=== PATIENT | male | born 1955 | race Caucasian/White ===

== ENCOUNTER 2019-07-03 12:06 | Outpatient (CLI) | payer OTHER ==
--- NOTE | 2019-07-03 14:30 | RAD ---
LUMBAR SPINE SERIES 4 VIEWS: Date: 07/03/19 HISTORY: Back pain. FINDINGS: The vertebral bodies are normal in height. Bilateral pedicle screws have been placed at L2, L3, L4, a nd L5. Laminectomy changes from L2-L4 are noted. Markers of disc implants are within the confines of the disc levels. Marked disc narrowing is seen at the L1-2 level. I do not see any abnormal motion of the flexion or extension views. IMPRESSION: Postoperative changes of the spine. POS: TPC
== END 2019-07-03 12:07 | disposition home or self-care (01) ==
LOC: SCSRAD 12:06
PROVIDERS: ATTEND Neurological Surgery
DX: M54.5 Low back pain (principal); Z98.890 Other specified postprocedural states
CPT/HCPCS: 72110

== ENCOUNTER 2019-09-01 06:13 | Outpatient (CLI) | payer OTHER ==
[2019-09-01 13:16] LABS: Hemoglobin 16.1 g/dL (14.0-18.0); Mean Corpuscular HGB CONC 33.8 g/dL (32.0-36.0); Mean Corpuscular Hemoglobin 31.9 pg (27.0-31.0); Mean Corpuscular Volume 94.3 fL (78.0-98.0); Mean Platelet Volume 7.7 fL (7.4-10.4); Platelet Count 151 thou/uL (130-400); RBC Distribution Width 12.4 % (11.5-14.5); Red Blood Cell (RBC) Count 5.04 mill/uL (4.70-6.10); White Blood Cell (WBC) Count 6.6 thou/uL (4.8-10.8)
[2019-09-01 13:22] LABS: PTT 30.8 SEC (22.9-36.1); Prothrombin Time 13.3 SEC (12.0-14.7)
== END 2019-09-01 06:14 | disposition home or self-care (01) ==
LOC: LABBT 06:13
PROVIDERS: ATTEND Neurological Surgery
DX: Z01.812 Encounter for preprocedural laboratory examination (principal); M48.061 Spinal stenosis, lumbar region without neurogenic claudication; M51.16 Intervertebral disc disorders with radiculopathy, lumbar region
CPT/HCPCS: 85027; 85610; 85730

== ENCOUNTER 2019-09-01 11:30 | Inpatient (IN) | payer OTHER ==
[2019-09-01 12:14] VITALS: BMI 36.9
--- NOTE | 2019-09-01 16:59 | HP ---
REASON FOR ADMISSION: I am here for my back surgery. HISTORY OF PRESENT ILLNESS: Pedro Fischer is a pleasant 63-year-old gentleman who came to see us in our office in June with back and leg pain. He had previous spine surgery done in [place] in 2009 including decompression and fusion. Things got worse again 2 years later and even more significantly in the 8 months leading up to his appointment in our office. He can stand and walk for about 5 minutes without having to lean forward. Sitting down also relieves his leg pain. With enough standing, he gets pain, numbness, tingling, weakness, and then has to sit. He has no loss of bowel or bladder control. In the past, he has tried medications, physical therapy, injections, and none of this was alleviating his symptoms. PAST MEDICAL HISTORY: Degenerative spine disease, cancer, chest pain, coronary artery disease, hypertension, cardiac dysrhythmia, shortness of breath, squamous cell carcinoma. PAST SURGICAL HISTORY: Laminectomy and fusion in 2009 in [place]. He had surgery on lesion in the neck in 2014. He has had cardiac ablation. MEDICATIONS: 1. Metoprolol. 2. Lisinopril. 3. Niacin. 4. Jardiance. 5. Aspirin. 6. Meloxicam. 7. Pantoprazole. 8. Pravastatin. 9. Uloric. 10. Hydrocodone/acetaminophen. 11. Zofran. 12. Fiber supplement. 13. Metformin. 14. Fish oil. 15. Flecainide. 16. Amiloride. ALLERGIES: TO LATEX. FAMILY HISTORY: Significant for coronary artery disease in his father who has . His mother had diabetes and she is no longer alive. SOCIAL HISTORY: Mr. Fischer is a former smoker. When he had his cardiac issues, he quit. He drinks alcoholic beverages from [id number] and does not use illicit drugs. PHYSICAL EXAMINATION: NEUROLOGIC: Mr. Fischer is awake during his evaluation. He is alert. His cognitive function is normal. There is no evidence of speech difficulty with either dysarthria or dysphasia. His cranial nerves are intact. Motor examination of the lower extremities reveal preserved motor function when seated in the iliopsoas, quadriceps, hamstrings, anterior tib, EHL, and gastrocnemius. There is no area of dermatomal sensory loss on his sensory examination. The reflexes are hypoactive, but symmetric. The toes are downgoing. There is no clonus. On gait evaluation, it is difficult to perform tandem gait and the longer he stands, the more he leans forward when walking. Lower extremity examination shows positive straight leg raise on the left. ADMISSION FINDINGS AND TEST RESULTS: MR imaging suggests of instrumented fusion from L2 through L5 with stenosis at T12-L1 and L1-L2 as well as an intervertebral disk protrusion causing lateral recess disease at L5-S1. Flexion-extension views do not show overt instability. ASSESSMENT AND PLAN: Adjacent segment stenosis above and below prior fusions, intractable neurogenic claudication. In the office, Mr. Fischer expressed interest in surgical intervention. Informed consent: In the office, we discussed indications, risks, benefits, alternatives, and expected outcomes from lumbar laminectomy. The risks we discussed included, but were not limited to, bleeding, infection, CSF leak, nerve damage, paralysis, incontinence, wheelchair dependence, major blood vessel injury, cardiopulmonary complications of anesthesia, and . Future risks include need to repeat surgery, failure of instrumentation. He understands all these risks and wants to proceed. We will take him to the operating room. Job ID: [id number]
[2019-09-04] MEDS ORDERED: Bupivacaine PF 0.5% 30 ML VIAL ONE (06:12)
[2019-09-04] MEDS ORDERED: Thrombin 5000 UNITS/5 ML VIAL ONE (06:12)
[2019-09-04] MEDS ORDERED: Fentanyl 100 MCG/2 ML VIAL ONE ×3 (06:29→12:45)
[2019-09-04] MEDS ORDERED: HYDROmorphone 2 MG/ML VIAL ONE (13:39)
[2019-09-04] MEDS ORDERED: Promethazine HCl 25 MG/ML VIAL IM PRN ×2 (13:59→14:22)
[2019-09-04] MEDS ORDERED: Promethazine HCl 25 MG/ML VIAL SLOW IVP PRN (13:59)
[2019-09-04] MEDS ORDERED: Morphine Sulfate 2 MG/ML SYRINGE SLOW IVP PRN (13:59)
[2019-09-04] MEDS ORDERED: PACU-Morphine 4MG/ML VIAL SLOW IVP PRN (13:59)
[2019-09-04] MEDS ORDERED: Ondansetron HCl/PF 4 MG/2 ML Vial IVP PRN (13:59)
[2019-09-04] MEDS ORDERED: HYDROmorphone 2 MG/ML VIAL SLOW IVP PRN (13:59)
[2019-09-04] MEDS ORDERED: Mag-Al 1200 mg/1200 mg/30 ML UDCUP PO PRN (14:22)
[2019-09-04] MEDS ORDERED: Acetaminophen 650 MG Suppository PR PRN (14:22)
[2019-09-04] MEDS ORDERED: Milk Of Magnesia 30 ML UDCUP PO PRN (14:22)
[2019-09-04] MEDS ORDERED: Acetaminophen 325 MG TAB PO PRN (14:22)
[2019-09-04] MEDS ORDERED: diphenhydrAMINE 25 MG CAP PO PRN (14:22)
[2019-09-04] MEDS ORDERED: Acetaminophen/Codeine 30-300mg Tablet PO PRN (14:22)
[2019-09-04] MEDS ORDERED: Ondansetron PF 4 MG/2 ML Vial IVP PRN (14:22)
[2019-09-04] MEDS ORDERED: diphenhydrAMINE 50 MG/ML VIAL IVP PRN (14:22)
[2019-09-04] MEDS ORDERED: Bisacodyl 10 MG SUPP PR PRN (14:22)
[2019-09-04] MEDS ORDERED: Promethazine 25 MG TAB PO PRN (14:22)
[2019-09-04] MEDS ORDERED: Morphine 2 MG/ML SYRINGE SLOW IVP PRN (14:22)
[2019-09-04] MEDS ORDERED: HYDROcodone/Acetaminophen 7.5/325 mg Tablet PO PRN (14:22)
[2019-09-04] MEDS ORDERED: Fleet Enema 133 ML BOT PR PRN (14:22)
[2019-09-04] MEDS ORDERED: Promethazine HCl 12.5 MG SUPP PR PRN (14:22)
[2019-09-04] MEDS ORDERED: Dexamethasone 20 MG/5 ML VIAL ONE (14:29)
[2019-09-04] MEDS ORDERED: PHENYLEPHRINE-NS 100 MCG/ML 10 ML SYRINGE ONE (14:29)
[2019-09-04] MEDS ORDERED: Ketorolac Tromethamine 30 MG/ML VIAL ONE (14:29)
[2019-09-04] MEDS ORDERED: ePHEDrine/0.9% NaCl/PF SYRINGE 50 mg/10 ml ONE (14:29)
[2019-09-04] MEDS ORDERED: Ondansetron PF 4 MG/2 ML Vial ONE (14:29)
[2019-09-04] MEDS ORDERED: Vecuronium 10 MG VIAL ONE (14:29)
[2019-09-04] MEDS ORDERED: Lidocaine 1% PF 5 ML VIAL ONE (14:29)
[2019-09-04] MEDS ORDERED: Rocuronium Bromide 10 MG/ML (10ML VIAL) ONE (14:29)
[2019-09-04] MEDS ORDERED: PROPOFOL 200 MG/20 ML VIAL ONE (14:29)
[2019-09-04] MEDS ORDERED: Metoclopramide HCl 10 MG/2 ML VIAL ONE (14:29)
[2019-09-04] MEDS ORDERED: Glycopyrrolate 0.2 MG/ML 5 ML SYRINGE ONE (14:29)
--- NOTE | 2019-09-04 17:45 | OP ---
DATE OF PROCEDURE: 09/04/2019 WORKERS' COMPENSATION COMMISSIONER: None. PREOPERATIVE INDICATION: Treat pain and prevent neurological deterioration. PREOPERATIVE DIAGNOSES: 1. Adjacent segment stenosis above and below prior fusion with neurogenic claudication at T12-L1, L1-L2, and L5-S1. 2. Intervertebral disk herniation, L5-S1. POSTOPERATIVE DIAGNOSES: 1. Adjacent segment stenosis above and below prior fusion with neurogenic claudication at T12-L1, L1-L2, and L5-S1. 2. Intervertebral disk herniation, L5-S1. OPERATIVE PROCEDURES: 1. Reopening lumbar incision. 2. Decompressive laminectomy, medial facetectomy, foraminotomy, T12-L1, L1-L2, and L5-S1. 3. Microdiskectomy, L5-S1. 4. Operating microscope. 5. Repair of dural ulceration. PREOPERATIVE MEDICATIONS: Ancef 2 g IV. DRAIN NUMBER: Zero. DRAIN TYPE: None. DESCRIPTION OF PROCEDURE: The patient was brought to the operating room. General endotracheal anesthesia was induced. The patient was carefully positioned on the operating table with his chest and hips supported by gel-filled chest rolls. A lateral fluoro radiograph confirmed that the superior and inferior ends of the previous incision would give us access from T12 through L2 as well as L5-S1. Hair was removed with electric clippers. The lumbar skin was sterilely prepped and draped. We opened the inferior portion of his previous incision with a 10 blade knife and controlled bleeding with bipolar and monopolar cautery. We used monopolar cautery to dissect through scar tissue to the thoracodorsal fascia. The fascia was incised in the midline and we reflected the paraspinal muscles off the spinous process and lamina of L5 and the superior portion of the sacrum. A lateral fluoro radiograph confirmed the levels upon which we were operating. We then used an angled curette to identify the inferior margin of the L5 lamina. Adson rongeurs were used to remove the spinous processes. We carefully released scar tissue from the inferior portion of the L5 lamina and we performed laminectomy carefully in the midline. At the superior portion of the L5 lamina, we worked our way downwards from inferiorly, we worked our way upwards. We found a portion of the lamina that was densely adherent to the dura. We worked our way around that area laterally and we carefully peeled it off under the operating microscope. We did this under microscopic magnification and using microsurgical techniques. As we removed the lamina, there was no dura under it, approximately 7 mm wide and 14 mm long. There was scarred over arachnoid, bulging out with no brisk CSF leak, but some slow egress of CSF. This was not a durotomy from surgery, but rather an erosion from friction of the dura on the ventral surface of the L5 lamina. We brought a bovine pericardial patch into the field. We cut it to the fit the defect. Using a 6-0 Prolene suture and microsurgical techniques, we sewed in this dural patch. This was done with a combination of running and interrupted sutures. Valsalva was administered to the patient after we completed our stitching. There was no brisk CSF egress. I then turned our attention to the decompression. We performed medial facetectomies and foraminotomies to ensure the L5 nerve roots and the S1 nerve roots could pass through their respective lateral recesses and out their foramina without impingement. With the decompression was secured, we looked ventrally for intervertebral disk herniation. We found this over the shoulder of the S1 nerve root on the left side. Multiple large fragments of disk material were removed from the ventral epidural space. Hemostasis was obtained with gentle bipolar cautery. We waxed the bone edges here and now we turned our attention to T12 through L2. We kept on operating under the operative microscope. We made our skin incision in line with the previous incision and extended superiorly. We incised down to the thoracodorsal fascia, incised this in the midline and reflected the paraspinal muscles off the spinous process and lamina of T12, L1, and L2. A lateral fluoro radiograph confirmed these levels. We used an Adson rongeur to remove the spinous process of T12 and L1. There was a remnant of the superior lamina of L2 noticed as well. Using a high-speed drill and a isabel bit, we thinned the lamina of T12 and L1 and the superior portion of L2. Using Kerrison rongeurs, we fashioned a laminectomy. We widened our laminectomy defect by performing medial facetectomies and foraminotomies. There was extreme compression at L1-L2 and this required very careful dissection of the dura from the ventral surface of the facet joints. We were able to free the dura. We performed medial facetectomies and decompressed the L2 nerve roots in the lateral recesses and foraminotomies over the roots at their exit points. In similar fashion, we performed medial facetectomy and foraminotomy at T12-L1, decompressing the L1 nerve roots in their foramina as well. The T12 nerve roots left the spine without any impingement. We waxed the bone edges here. We irrigated both incisions with bacitracin irrigation. We treated both incisions with vancomycin powder. We infused local anesthetic in the paraspinal muscles. We reinforced our dural closure with DuraSeal tissue sealant inferiorly. We closed both wounds in anatomical layers. We applied a sterile dressing. This was a clean case, no contamination. Job ID: [id number]
[2019-09-04] MEDS: Scopolamine 1.5 mg/72 hour Patch TD SCH (18:33)
[2019-09-04] MEDS: CEFAZOLIN 2 GM in Premix Bag 1 BAG IVPB SCH ×2 (18:41→23:09)
[2019-09-04] MEDS ORDERED: Dextrose 50% Abboject 50 ML SYRINGE SLOW IVP PRN (20:28)
[2019-09-04] MEDS ORDERED: Dextrose 5% in Water 1,000 ML IV PRN (20:28)
[2019-09-04] MEDS ORDERED: HumaLOG 300 UNITS/3 ML VIAL SC PRN (20:28)
--- NOTE | 2019-09-04 21:30 | CON ---
DATE OF CONSULTATION: 09/04/2019 TIME OF ASSESSMENT: 1900 hours. REASON FOR CONSULTATION: Medical management. HISTORY OF PRESENT ILLNESS: Mr. Fischer is a 63-year-old gentleman, who has undergone a decompressive laminectomy of T12-L1, L1-L2, and L5-S1. This was done by Dr. Byrd today. He apparently has had prior spine surgery in [place] in 2009 consisting of decompression and fusion. The patient has had gradual worsening of back pain since then. At this present time, he states his pain is controlled and he reports having issues with sleep apnea. The patient is requesting a CPAP, but states he does not know his settings. Reports underwent a sleep study 6 years ago and states his machine broke approximately 2 years ago. He has tried seeing his primary care physician with unsuccessful attempt at getting a sleep study arranged. He is requesting to have the sleep study done while he is here. The patient is otherwise without any concerns or complaints. He denies any chest pain or shortness of breath at this present time. He has mild discomfort to the right side of the ribcage and states he was lying on that side during the surgery, which turned out to be longer than expected. He states it is only slightly tender to touch. REVIEW OF SYSTEMS: All other review of systems is negative. PAST MEDICAL HISTORY: 1. Degenerative spine disease. 2. History of basal cell carcinoma. 3. History of squamous cell carcinoma. 4. Coronary artery disease. 5. Hypertension. 6. History of cardiac arrhythmia. 7. Obstructive sleep apnea. PAST SURGICAL HISTORY: 1. Laminectomy and fusion in 2009. 2. Lesion removed from neck in 2014. 3. History of cardiac ablation. 4. Spine surgery today as mentioned above. SOCIAL HISTORY: The patient states he lives with his . Denies any tobacco use since age 16. Reports occasional alcohol consumption. No illicit drug use. FAMILY HISTORY: Significant for coronary artery disease in his father who is . His mother who also is , had a history of diabetes. ALLERGIES: TO LATEX. CURRENT MEDICATIONS: 1. Amiloride/hydrochlorothiazide. 2. Aspirin. 3. Empagliflozin. 4. Uloric. 5. Furosemide. 6. Hydrocodone/acetaminophen. 7. Vascepa. 8. Lisinopril. 9. Meloxicam. 10. Metformin ER. 11. Toprol-XL. 12. Niacin. 13. Pantoprazole. 14. Potassium chloride. PHYSICAL EXAMINATION: GENERAL: The patient appears well developed, well nourished, is in no acute distress. VITAL SIGNS: Temperature 97.6; pulse 66; respirations 16; O2 saturation 88% on room air, maintaining 90% on 2 L by nasal cannula; blood pressure 139/81. HEENT: Normocephalic and atraumatic. Pupils are equal, round, and reactive to light. Sclerae icterus. Oropharynx is clear. NECK: Supple. LUNGS: Clear to auscultation bilaterally without any wheezes, rales, or rhonchi. CARDIAC: Regular rate and rhythm. ABDOMEN: Soft, nontender, nondistended. Normoactive bowel sounds present. Mild discomfort to the right lower lateral rib cage with palpation. No guarding, minimally uncomfortable per the patient. EXTREMITIES: No lower leg swelling or edema. NEUROLOGIC: Alert and oriented x3. SKIN: Warm and dry. LABORATORY DATA: Obtained on September 01, 2019, white blood count 6.6, hemoglobin 16.1, hematocrit 47.5, platelets 151. IMAGING DATA: None. IMPRESSION AND PLAN: Mr. Fischer is a 63-year-old gentleman, status post laminectomy, who has been referred for medical management of the following. 1. Hypertension. Resume home medications. Monitor blood pressure. 2. Diabetes mellitus. We will change his diet to heart healthy/consistent carb diet. We will monitor blood glucose and insulin sliding scale has been ordered. 3. Obstructive sleep apnea. The patient is requesting a CPAP, however, does not know his settings. We will attempt to obtain an autoPAP. The patient is also requesting a sleep study, so he can obtain new machine while he is here hospitalized. However, I explained that this need to be arranged as an outpatient through his primary care physician. Continuous O2 saturation monitoring. 4. Gastrointestinal prophylaxis. The patient is on pantoprazole at home, which we will continue. 5. Hyperlipidemia. Resume home medications. 6. The patient with known arrhythmia. He is on flecainide at home, which we will resume. We will obtain a baseline EKG. Echocardiogram on file was done on August 10, 2019, by Dr. Barakat. He was noted to have a normal ejection fraction of 60 % to 65% with RV mildly dilated, as well as left atrium mildly dilated, mild aortic valve sclerosis without significant stenosis, mild tricuspid regurgitation. 7. Deep venous thrombosis prophylaxis with mechanical SCDs. 8. Code status, full. Surrogate decision maker is his , Arti Fischer. Thank you for this consultation. We will continue to follow the patient with you. Case was discussed with attending who agrees with plan of care as described above. Job ID: [id number] MTDJoel
[2019-09-04] MEDS: metFORMIN 500 MG TAB PO SCH (22:01)
[2019-09-04] MEDS: Simvastatin 20 MG TAB PO SCH (22:02)
[2019-09-04] MEDS: Niacin 500 MG TAB PO SCH (22:02)
[2019-09-04] MEDS: Febuxostat 40 MG TAB PO SCH (22:02)
[2019-09-04] MEDS: Famotidine/PF 20 mg/2ml Vial SLOW IVP SCH (22:05)
[2019-09-05 05:18] LABS: #Lymphocytes 1.5 thou/uL (1.20-3.40); #Monocytes 1.1 thou/uL (0.11-0.59); #Neutrophils 9.5 thou/uL (1.40-6.50); %Basophils 0.1 % (0.0-1.0); %Eosinophils 0.1 % (0.0-10.0); %Lymphocytes 12.5 % (21.0-51.0); %Neutrophils 78.3 % (42.0-75.0); Mean Corpuscular HGB CONC 33.2 g/dL (32.0-36.0); Mean Corpuscular Hemoglobin 32.2 pg (27.0-31.0); Mean Corpuscular Volume 97.1 fL (78.0-98.0); Mean Platelet Volume 7.2 fL (7.4-10.4); Platelet Count 137 thou/uL (130-400); RBC Distribution Width 12.5 % (11.5-14.5); Red Blood Cell (RBC) Count 4.34 mill/uL (4.70-6.10); White Blood Cell (WBC) Count 12.1 thou/uL (4.8-10.8)
[2019-09-05] MEDS: Acetaminophen/Codeine 30-300mg Tablet PO PRN (05:24)
[2019-09-05] MEDS: Tamsulosin HCl 0.4 MG CAP PO SCH (05:25)
[2019-09-05] MEDS: tiZANidine HCl 4 MG TAB PO PRN ×3 (05:25→23:52)
[2019-09-05] MEDS: HumaLOG 300 UNITS/3 ML VIAL SC PRN ×2 (05:26→18:07)
[2019-09-05 05:34] LABS: Anion Gap 12 mmol/L (10-20); BUN (Urea Nitrogen) 15 mg/dL (8.4-25.7); Calc. Creatinine Clearance 172 mL/min (70-130); Calcium 8.3 mg/dL (7.8-10.44); Carbon Dioxide 27 mmol/L (23-31); Chloride 100 mmol/L (98-107); Estimated GFR-MDRD Greater than 90; Glucose 155 mg/dL (80-115); Potassium 4.2 mmol/L (3.5-5.1); Sodium 135 mmol/L (136-145)
[2019-09-05] MEDS: Sodium Chloride 0.9% 1,000 ML IV SCH ×4 (06:23→23:53)
--- NOTE | 2019-09-05 07:00 | PRG ---
DATE OF SERVICE: 09/05/2019 Mr. Fischer is one day out from decompressive laminectomy above and below previous long segment fusion. He had significant amount of stenosis seen in the operating room and a part of the L5 lamina that had eroded through the dura. The dura was repaired and for this reason, we kept him flat overnight. His back hurts and there is some pain over the greater trochanteric bursa on the right side. Among the electronically recorded vital signs, I do not see any fevers. The other vitals have all been stable. The neurological function in lower extremities is normal. The plan today is to get Mr. Fischer up and moving. We will slowly raise the head of bed over the next hour or so. The first time he is out of bed, he will need assistance of 2 people. Once his balance is assessed, then thereafter he may be stable enough to go with one person assisting with ambulation. He should walk as frequently as possible. Physical therapy can start. Because of the bursitis that he notes this morning, I have instructed him to stretch his iliotibial band by flexing the knee and then pulling it towards the contralateral shoulder. The stretches could be done while he is in bed at any time. Once he is safe for activities of daily living, he can be discharged, but that is unlikely to happen today. Job ID: [id number] MTDD
[2019-09-05] MEDS ORDERED: Hydrochlorothiazide 25 MG TAB PO SCH (09:00)
[2019-09-05] MEDS ORDERED: (Empagliflozin [Jardiance] 10 MG) PO SCH (09:00)
[2019-09-05] MEDS ORDERED: Furosemide 20 MG TAB PO SCH (09:00)
[2019-09-05] MEDS ORDERED: AMILORIDE PO SCH (09:00)
[2019-09-05] MEDS ORDERED: [UNRECOGNIZED DRUG - OTHER] PO SCH (09:00)
[2019-09-05] MEDS ORDERED: HYDROCHLOROTHIAZIDE PO SCH (09:00)
[2019-09-05] MEDS ORDERED: Lisinopril 20 MG TAB PO SCH (09:00)
[2019-09-05] MEDS: HYDROcodone/Acetaminophen 7.5/325 mg Tablet PO PRN ×3 (09:40→18:04)
[2019-09-05] MEDS: Aspirin Chewable 81 MG TAB PO SCH (09:41)
[2019-09-05] MEDS: metFORMIN 500 MG TAB PO SCH ×2 (09:42→20:16)
[2019-09-05] MEDS: Famotidine/PF 20 mg/2ml Vial SLOW IVP SCH (09:42)
[2019-09-05] MEDS ORDERED: Labetalol HCl 100 MG/20 ML VIAL SLOW IVP PRN (13:14)
[2019-09-05] MEDS: Lisinopril 10 MG TAB PO SCH (20:15)
[2019-09-05] MEDS: Febuxostat 40 MG TAB PO SCH (20:15)
[2019-09-05] MEDS: Simvastatin 20 MG TAB PO SCH (20:16)
[2019-09-05] MEDS: Niacin 500 MG TAB PO SCH (20:16)
--- NOTE | 2019-09-05 20:17 | PDOC.HOSPP ---
- Subjective Encounter Date: 09/05/19 Encounter Time: 18:45 Subjective: Patient seen and examined for med mngt. No new complaints. No overnight events - Objective Vital Signs & Weight: Vital Signs (12 hours) Temp Pulse Pulse Resp BP BP BP 09/05/19 16:12 98.0 F 80 20 107/70 09/05/19 14:50 112/64 09/05/19 13:42 71 108/70 09/05/19 10:14 97.9 F 72 20 88/52 L 09/05/19 09:00 71 114/69 95/61 Pulse Ox Pulse Ox 09/05/19 16:12 93 L 09/05/19 14:50 09/05/19 13:42 09/05/19 10:14 95 09/05/19 09:00 95 Weight Weight 280 lb I&O: 09/04/19 09/05/19 09/06/19 06:59 06:59 06:59 Intake Total 2562.5 Output Total 900 Balance -900 2562.5 Result Diagrams: 09/05/19 05:03 09/05/19 05:03 Additional Labs: Accuchecks 09/05/19 09/05/19 09/05/19 16:13 10:23 05:27 POC Glucose 199 H 161 H 150 H 09/04/19 22:04 POC Glucose 201 H Hospitalist ROS - Review of Systems Respiratory: denies: cough, dry, shortness of breath, hemoptysis, SOB with excertion, pleuritic pain, sputum, wheezing, other Cardiovascular: denies: chest pain, palpitations, orthopnea, paroxysmal noc. dyspnea, edema, light headedness, other - Medication Medications: Active Medications Generic Name Dose Route Start Last Admin Trade Name Freq PRN Reason Stop Dose Admin Acetaminophen/Codeine Phosphate 2 tab 09/04/19 14:22 09/05/19 05:24 Tylenol #3 PO 2 tab Q3H PRN Administration Moderate Pain (4-6) Hydrocodone Bitart/Acetaminophen 2 tab 09/04/19 14:22 09/05/19 18:04 [place] 7.5/325 PO 2 tab Q4H PRN Administration Moderate Pain (4-6) Aspirin 81 mg 09/05/19 09:00 09/05/19 09:41 Aspirin Chewable PO 81 mg DAILY JESS Administration Febuxostat 80 mg 09/04/19 21:00 09/04/19 22:02 Uloric PO 80 mg QPM JESS Administration Sodium Chloride 1,000 mls @ 75 mls/hr 09/04/19 14:30 09/05/19 11:30 Normal Saline 0.9% IV 1,000 mls .[id number] JESS Administration Insulin Human Lispro 0 units 09/04/19 20:28 09/05/19 18:07 Humalog SC 2 unit .MILD SLIDING SCALE PRN Administration Mild Correctional Scale Insulin Human Lispro 0 units 09/04/19 20:28 09/04/19 22:05 Humalog SC 2 unit .BEDTIME SLIDING SC PRN Administration Bedtime Correctional Scale Metformin HCl 750 mg 09/04/19 21:00 09/05/19 09:42 Glucophage PO 750 mg BID JESS Administration Morphine Sulfate 2 mg 09/04/19 14:22 09/05/19 13:43 Morphine SLOW IVP 2 mg Q1H PRN Administration Moderate Breakthrough Pain Niacin 500 mg 09/04/19 21:00 09/04/19 22:02 Niacin PO 500 mg HS JESS Administration Pantoprazole Sodium 40 mg 09/04/19 21:00 09/04/19 22:02 Protonix PO 40 mg QPM JESS Administration Potassium Chloride 20 meq 09/04/19 21:00 09/04/19 22:01 Klor-Con PO 20 meq QPM JESS Administration Scopolamine 1.5 mg 09/04/19 15:00 09/04/19 18:33 Transderm Scop TD 1.5 mg Q3D EJSS Administration Simvastatin 20 mg 09/04/19 21:00 09/04/19 22:02 Zocor PO 20 mg QPM JESS Administration Tamsulosin HCl 0.4 mg 09/05/19 06:00 09/05/19 05:25 Flomax PO 0.4 mg 0600 JESS Administration Tizanidine HCl 4 mg 09/04/19 14:22 09/05/19 16:32 Zanaflex PO 4 mg Q6H PRN Administration Muscle Spasm - Exam Heart: RRR, no gallops Respiratory: no wheezes, no rales, no ronchi Gastrointestinal: soft, non-tender, normal bowel sounds Extremities: no cyanosis Hosp A/P - Plan DVT proph w/SCDs HTN - BP on lower side CAREN Obesity BMI 36.9 CAD DM2 Hyponatremia PLAN: Reduce Lisinopril to 10 mg BID with holding parameters Reduce Toprol XL to 25 mg BID with holding parameters Hold Lasix/HCTZ Cont Metformin with sliding scale CPAP HS Cont PT/OT
[2019-09-06] MEDS: Tamsulosin HCl 0.4 MG CAP PO SCH (05:27)
--- NOTE | 2019-09-06 07:49 | PRG ---
DATE OF SERVICE: 09/06/2019 Mr. Fischer is 2 days out from lumbar laminectomy above and below the areas of previous decompression and fusion performed elsewhere. He has been slow to mobilize. He needs assistance of 2. When he walks on his own, it has been for about 50 feet before his legs get tired enough he has to sit again. He does not complain of headache. He does not complain of radicular pain. He does complain of some muscle spasm and the aforementioned weakness. I reviewed his vital signs, I do not see any fevers recorded. His blood pressures have been in the 90s to 110s. EXTREMITIES: When he is resting in bed, he has good motor function and sensory function in the lower extremities. The incision is well-approximated with minimal drainage on the dressing that I removed. I think Mr. Fischer would be a good candidate for inpatient rehabilitation. We will get them to come by today and decide whether tomorrow he could transfer to their facility. He just has not been walking far enough and he is not independent enough yet to leave the hospital and a transition to home through rehab, I think would be worthwhile. The patient could shower today, does not need a dressing unless there is drainage. Job ID: [id number] MTDD
[2019-09-06] MEDS: Aspirin Chewable 81 MG TAB PO SCH (08:39)
[2019-09-06] MEDS: HYDROcodone/Acetaminophen 7.5/325 mg Tablet PO PRN ×4 (08:39→20:54)
[2019-09-06] MEDS: metFORMIN 500 MG TAB PO SCH ×2 (08:39→20:56)
[2019-09-06] MEDS: tiZANidine HCl 4 MG TAB PO PRN ×2 (08:39→17:47)
[2019-09-06] MEDS: Lisinopril 10 MG TAB PO SCH ×2 (08:43→20:57)
--- NOTE | 2019-09-06 10:50 | PDOC.FM ---
- Subjective Subjective: NAEO. Patient reports feeling ok this AM. Does have persistent back pain but is moving around ok. Reports a "productive feeling" cough but denies any SOB or fever/chills. No dizziness or orthostasis with ambulation. - Objective MAR Reviewed: Yes Vital Signs & Weight: Vital Signs (12 hours) Temp Pulse Resp BP BP Pulse Ox 09/06/19 08:43 94/63 09/06/19 08:09 98.3 F 77 20 94/63 96 09/06/19 07:39 97.5 F L 67 18 92/61 94 L 09/06/19 03:40 98.2 F 72 18 99/63 92 L 09/05/19 23:38 97.7 F 75 18 100/65 97 Weight Weight 127.006 kg I&O: 09/05/19 09/06/19 09/07/19 06:59 06:59 06:59 Intake Total 2562.5 Output Total 900 Balance -900 2562.5 Result Diagrams: 09/05/19 05:03 09/06/19 13:04 Phys Exam - Physical Examination Constitutional: NAD HEENT: moist MMs Neck: supple Respiratory: no wheezing, no rales end expiratory rhonchi in lower lung pelayo & distant breath sounds thorughout 2/2 body habitus Cardiovascular: RRR, no significant murmur Neurological: non-focal, moves all 4 limbs Psychiatric: normal affect, A&O x 3 Skin: normal turgor Deviation from normal: mild edema with erythema & honey-colored crusting noted on chin -: back incision site clean, dry & intact Dx/Plan (1) HTN (hypertension) Code(s): I10 - ESSENTIAL (PRIMARY) HYPERTENSION Status: Acute (2) CAREN (obstructive sleep apnea) Code(s): G47.33 - OBSTRUCTIVE SLEEP APNEA (ADULT) (PEDIATRIC) Status: Acute (3) Obesity Code(s): E66.9 - OBESITY, UNSPECIFIED Status: Acute (4) CAD (coronary artery disease) Code(s): I25.10 - ATHSCL HEART DISEASE OF [place] CORONARY ARTERY W/O ANG PCTRS Status: Acute (5) Post-operative pain Code(s): G89.18 - OTHER ACUTE POSTPROCEDURAL PAIN Status: Acute (6) Impetigo Code(s): L01.00 - IMPETIGO, UNSPECIFIED Status: Acute - Plan Plan: 36YOM w/ a PMH significant for HTN, CAREN on APAP, DMII & HLD who is post-op day # 2 s/p laminectomy for which we were consulted for medical management. Hypotension - BP still running in the 90s systolic this AM but patient reports being asymptomatic. - Held AM BP meds. Will continue to hold & restart as tolerated by the patient. HTN - See plan above. CAREN - Continue APAP use in hospital. Obesity BMI 36.9 - Aware, will encourage weight loss. CAD - Continue home meds NIDDM2 - Aware, continue home meds. - mild SSI to keep BG levels below 180 while inpatient. hypoglycemia protocol. ACHS accuchecks. Hyponatremia - Na 135 yesterday, likely 2/2 decreased PO intake. Will get a repeat BMP today since patient now tolerating PO. Impetigo - Impetiginous rash noted on chin. - Will start topical and oral abx therapy to be continued for 5 & 7 days respectively. post-op pain - Managed by primary team post-op day #2 s/p laminectomy - Managed by primary team. Reports PT & OT are on board & pending rehab placement for continued therapy post-op. Dispo: Stable & in good condition. Will gradually resume home BP meds as tolerated by patient. D/c per primary team likely tomorrow to rehab for continued therapy. Addendum - Attending - Attending Attestation Date/Time: 09/07/19 0750 I personally evaluated the patient and discussed the management with Dr. Whyte yesterday morning. I agree with the History, Examination, Assessment and Plan documented above with any addition or exceptions noted below.
[2019-09-06 13:38] LABS: Anion Gap 9 mmol/L (10-20); BUN (Urea Nitrogen) 13 mg/dL (8.4-25.7); Calc. Creatinine Clearance 186 mL/min (70-130); Calcium 7.8 mg/dL (7.8-10.44); Carbon Dioxide 27 mmol/L (23-31); Chloride 101 mmol/L (98-107); Estimated GFR-MDRD Greater than 90; Glucose 137 mg/dL (80-115); Potassium 4.2 mmol/L (3.5-5.1); Sodium 133 mmol/L (136-145)
[2019-09-06] MEDS: HumaLOG 300 UNITS/3 ML VIAL SC PRN (17:47)
[2019-09-06] MEDS: Simvastatin 20 MG TAB PO SCH (20:55)
[2019-09-06] MEDS: Niacin 500 MG TAB PO SCH (20:55)
[2019-09-06] MEDS: Doxycycline 100 MG CAP PO SCH (20:56)
[2019-09-06] MEDS: Febuxostat 40 MG TAB PO SCH (20:57)
[2019-09-06] MEDS: Mupirocin 2% Ointment 22 GM Tube TOP SCH (20:58)
[2019-09-07] MEDS: HYDROcodone/Acetaminophen 7.5/325 mg Tablet PO PRN ×5 (03:32→21:10)
[2019-09-07] MEDS: Tamsulosin HCl 0.4 MG CAP PO SCH (05:05)
--- NOTE | 2019-09-07 08:31 | PRG ---
DATE OF SERVICE: 09/07/2019 Mr. Fischer is 3 days out from a redo lumbar laminectomy above and below areas of previous lumbar fusion. He also had diskectomy at the lumbosacral interspace. Mr. Fischer said his preoperative pain has gone, but he has a significant muscle spasm in the back, in the gluteal area, some times it affects his upper thigh. He feels general weakness and his legs get tired if he is walking with Physical Therapy in the hallways. Yesterday, showering caused significant muscle spasm and set him back a bit. He is hoping for a better day today. I reviewed his vital signs. I do not see any fevers recorded overnight and his blood pressures have been in the 90s to 120s. On examination, there is at least 4+ out of 5 strength in all muscle groups tested in the lower extremities. There is no area of dermatomal sensory loss. Mr. Fischer has had 3 days of increasing muscle spasm and back pain after surgery. I believe the pain will plateau today and will get a bit ahead of it with adding gabapentin. I think he is a good candidate for inpatient rehabilitation and a transfer there could be made at any time. If symptoms progressively worsen over time rather than improving, we could get imaging, but I do not believe that will be the case. Job ID: [id number] MTDD
[2019-09-07] MEDS: metFORMIN 500 MG TAB PO SCH ×2 (08:44→21:10)
[2019-09-07] MEDS: Aspirin Chewable 81 MG TAB PO SCH (08:44)
[2019-09-07] MEDS: Doxycycline 100 MG CAP PO SCH ×2 (08:44→21:09)
[2019-09-07] MEDS: tiZANidine HCl 4 MG TAB PO PRN ×2 (08:44→14:48)
[2019-09-07] MEDS: Lisinopril 10 MG TAB PO SCH ×2 (08:45→21:12)
[2019-09-07] MEDS: Gabapentin 300 MG CAP PO SCH ×3 (08:45→21:09)
[2019-09-07] MEDS: Mupirocin 2% Ointment 22 GM Tube TOP SCH ×2 (08:45→21:11)
[2019-09-07] MEDS: Morphine 4 MG/ML VIAL SLOW IVP PRN ×2 (09:08→22:08)
--- NOTE | 2019-09-07 09:27 | PDOC.FM ---
- Subjective Subjective: Patient reports feeling ok this AM. Still having quite a bit of pain. Also concerned he may be developing a UTI but denies any dysuria, frequency, cloudy urine or hematuria. Just states "towards the end it just doesn't feel right." Also endorses constipation and would like something for this. - Objective MAR Reviewed: Yes Vital Signs & Weight: Vital Signs (12 hours) Temp Pulse Resp BP BP Pulse Ox 09/07/19 08:45 151/96 H 09/07/19 07:59 98.1 F 77 18 151/96 H 90 L 09/07/19 03:10 98.2 F 71 16 134/84 94 L 09/06/19 23:20 97.7 F 67 16 113/76 97 Weight Weight 127.006 kg I&O: 09/06/19 09/07/19 09/08/19 06:59 06:59 06:59 Intake Total 2562.5 3590 Balance 2562.5 3590 Result Diagrams: 09/05/19 05:03 09/06/19 13:04 Phys Exam - Physical Examination Constitutional: NAD HEENT: moist MMs, sclera anicteric Neck: supple Respiratory: no wheezing, no rales, no rhonchi, clear to auscultation bilateral Cardiovascular: RRR, no significant murmur Gastrointestinal: soft, non-tender decreased bowel sounds Neurological: non-focal, moves all 4 limbs Psychiatric: normal affect, A&O x 3 Skin: normal turgor Deviation from normal: mild edema with erythema & honey-colored crusting noted on chin Dx/Plan (1) HTN (hypertension) Code(s): I10 - ESSENTIAL (PRIMARY) HYPERTENSION Status: Acute (2) CAREN (obstructive sleep apnea) Code(s): G47.33 - OBSTRUCTIVE SLEEP APNEA (ADULT) (PEDIATRIC) Status: Acute (3) Obesity Code(s): E66.9 - OBESITY, UNSPECIFIED Status: Acute (4) CAD (coronary artery disease) Code(s): I25.10 - ATHSCL HEART DISEASE OF [place] CORONARY ARTERY W/O ANG PCTRS Status: Acute (5) Post-operative pain Code(s): G89.18 - OTHER ACUTE POSTPROCEDURAL PAIN Status: Acute (6) Impetigo Code(s): L01.00 - IMPETIGO, UNSPECIFIED Status: Acute - Plan Plan: 36YOM w/ a PMH significant for HTN, CAREN on APAP, DMII & HLD who is post-op day # 3 s/p laminectomy for which we were consulted for medical management. Hypotension, resolved. - Will continue home meds as tolerated by the patient. HTN - Resume home meds today. CAREN - Continue APAP use in hospital. Obesity BMI 36.9 - Aware, will encourage weight loss. CAD - Continue home meds NIDDM2 - Aware, continue home meds. - mild SSI to keep BG levels below 180 while inpatient. hypoglycemia protocol. ACHS accuchecks. Hyponatremia - Na 133 yesterday. Will continue to monitor. Impetigo - Impetiginous rash noted on chin. - Will continue topical and oral abx therapy to be continued for 5 & 7 days respectively. post-op pain - Managed by primary team opioid induced constipation - Will start on JESS miralax & sennoside/docusate QD & BID respectively. post-op day #3 s/p laminectomy - Managed by primary team. Reports PT & OT are on board & pending rehab placement for continued therapy post-op. Dispo: Stable & in good condition. Will resume home BP meds as tolerated by patient. D/c per primary team likely today to rehab for continued therapy.
[2019-09-07] MEDS ORDERED: Polyethylene Glycol 3350 17 GM Packet PO SCH (09:30)
[2019-09-07] MEDS: Bisacodyl 10 MG SUPP PR SCH ×2 (10:23→21:13)
[2019-09-07] MEDS: Scopolamine 1.5 mg/72 hour Patch TD SCH (14:48)
[2019-09-07] MEDS: Acetaminophen/Codeine 30-300mg Tablet PO PRN (18:10)
[2019-09-07] MEDS: HumaLOG 300 UNITS/3 ML VIAL SC PRN (18:11)
[2019-09-07] MEDS ORDERED: Icosapent Ethyl 1 GM CAPSULE PO SCH (21:00)
[2019-09-07] MEDS: Niacin 500 MG TAB PO SCH (21:09)
[2019-09-07] MEDS: Simvastatin 20 MG TAB PO SCH (21:10)
[2019-09-07] MEDS: Febuxostat 40 MG TAB PO SCH (21:10)
[2019-09-08] MEDS: HYDROcodone/Acetaminophen 7.5/325 mg Tablet PO PRN (03:01)
[2019-09-08] MEDS: Morphine 4 MG/ML VIAL SLOW IVP PRN (04:01)
[2019-09-08] MEDS: Tamsulosin HCl 0.4 MG CAP PO SCH (05:19)
--- NOTE | 2019-09-08 06:11 | PDOC.FM ---
- Subjective Subjective: NAEO. Patient reports that he has yet to have a BM since his surgery. Denies any abdominal pain or N/V. Also denies any fever/chills, SOB, chest pain or cough. - Objective MAR Reviewed: Yes Vital Signs & Weight: Vital Signs (12 hours) Temp Pulse Resp BP BP BP Pulse Ox 09/08/19 03:42 98.9 F 76 18 163/93 H 94 L 09/07/19 23:30 97.6 F 70 19 130/86 92 L 09/07/19 21:12 115/76 09/07/19 20:00 98.5 F 68 18 115/76 93 L Weight Weight 127.006 kg I&O: 09/06/19 09/07/19 09/08/19 06:59 06:59 06:59 Intake Total 2562.5 3590 1959 Balance 2562.5 3590 1959 Result Diagrams: 09/05/19 05:03 09/08/19 06:26 Phys Exam - Physical Examination Constitutional: NAD HEENT: moist MMs Neck: supple Respiratory: no wheezing, no rales, no rhonchi, clear to auscultation bilateral Cardiovascular: RRR, no significant murmur Gastrointestinal: soft, non-tender, no distention, positive bowel sounds Neurological: non-focal, moves all 4 limbs Psychiatric: normal affect, A&O x 3 Skin: normal turgor, cap refill <2 seconds Dx/Plan (1) HTN (hypertension) Code(s): I10 - ESSENTIAL (PRIMARY) HYPERTENSION Status: Acute (2) CAREN (obstructive sleep apnea) Code(s): G47.33 - OBSTRUCTIVE SLEEP APNEA (ADULT) (PEDIATRIC) Status: Acute (3) Obesity Code(s): E66.9 - OBESITY, UNSPECIFIED Status: Acute (4) CAD (coronary artery disease) Code(s): I25.10 - ATHSCL HEART DISEASE OF [place] CORONARY ARTERY W/O ANG PCTRS Status: Acute (5) Post-operative pain Code(s): G89.18 - OTHER ACUTE POSTPROCEDURAL PAIN Status: Acute (6) Impetigo Code(s): L01.00 - IMPETIGO, UNSPECIFIED Status: Acute - Plan Plan: 36YOM w/ a PMH significant for HTN, CAREN on APAP, DMII & HLD who is post-op day # 4 s/p laminectomy for which we were consulted for medical management. Impetigo - Impetiginous rash noted on chin. - Will continue topical and oral abx therapy to be continued for 5 & 7 days respectively. Opioid induced constipation - Will continue JESS miralax & stool softener QD & BID respectively. Will consider an enema if patient is willing. Hyponatremia - NLast measured 2 days ago was 133. Will get a repeat BMP today to trend. post-op pain - Managed by primary team HTN - Continue home meds. CAREN - Continue APAP use in hospital. Obesity BMI 36.9 - Aware, will encourage weight loss. CAD - Continue home meds NIDDM2 - Aware, continue home meds. - mild SSI to keep BG levels below 180 while inpatient. Hypoglycemia protocol. ACHS accuchecks. post-op day #4 s/p laminectomy - Managed by primary team. Reports PT & OT are on board & pending rehab placement for continued therapy post-op. Hypotension, resolved. - Will continue home meds as tolerated by the patient. Dispo: Remains stable & in good condition. D/c per primary team either today to rehab or home for the weekend to start rehab therapy on Wednesday for continued therapy.
[2019-09-08] MEDS ORDERED: HYDROcodone/Acetaminophen 10/325 mg Tablet PO PRN (06:34)
[2019-09-08 06:57] LABS: Anion Gap 9 mmol/L (10-20); BUN (Urea Nitrogen) 7 mg/dL (8.4-25.7); Calc. Creatinine Clearance 226 mL/min (70-130); Carbon Dioxide 29 mmol/L (23-31); Chloride 100 mmol/L (98-107); Estimated GFR-MDRD Greater than 90; Glucose 111 mg/dL (80-115); Potassium 4.1 mmol/L (3.5-5.1); Sodium 134 mmol/L (136-145)
--- NOTE | 2019-09-08 07:24 | PRG ---
DATE OF SERVICE: 09/08/2019 Mr. Fischer is 4 days out from decompressive laminectomy above and below area of previous lumbar fusion. He had increasing symptoms peaking about 3 days after surgery and he feels like he plateaued and maybe turned a corner because his strength is improving and the pain is more manageable. He was able to walk 2 times in the hallway yesterday. He has walked farther than he has since his admission, but still not around the floor completely. He feels his legs are carrying him better. He is not as off-balanced as he has been with walking and the pain in his legs is improved. The pain at the surgical site, however, continues to bother him. He gets a few twinges of pain down the legs but after a couple minutes, they go away and he is able to walk. He was evaluated by Inpatient Rehabilitation to see if he is a candidate for a transfer and we are waiting on insurance approval. As I reviewed the vital signs, I do not see any fevers recorded. His blood pressures have been up for the last day, whereas they were in the 90s to 120s after surgery, they are now in the 130s to 160s. On physical exam, there is excellent strength in the iliopsoas and the quadriceps and the hamstrings and the anterior tib and the EHL and the gastroc and the toe flexors. There is no area of dermatomal sensory loss in the lower extremities. Incision is well-approximated. Mr. Fischer, in my view would be excellent candidate for inpatient rehabilitation. He needs to be more independent for activities of daily living before going home. He lives alone and does not have significant help in the house. He has had previous surgery and this recovery is in-line with what he has experienced before. He has made progress, but he is not walking as far as I would like him to before being discharged. If insurance approves the inpatient rehabilitation stay of a few days to a couple weeks maximum, then he can be transferred. I anticipate the total rehab length of stay will be 1 week or less. Job ID: [id number]
[2019-09-08] MEDS: Aspirin Chewable 81 MG TAB PO SCH (08:14)
[2019-09-08] MEDS: metFORMIN 500 MG TAB PO SCH ×2 (08:14→20:59)
[2019-09-08] MEDS: HYDROcodone/Acetaminophen 10/325 mg Tablet PO PRN ×4 (08:15→22:27)
[2019-09-08] MEDS: Lisinopril 10 MG TAB PO SCH ×2 (08:15→20:59)
[2019-09-08] MEDS: Gabapentin 300 MG CAP PO SCH ×3 (08:15→20:59)
[2019-09-08] MEDS: tiZANidine HCl 4 MG TAB PO PRN ×2 (08:50→15:45)
[2019-09-08] MEDS: Doxycycline 100 MG CAP PO SCH ×2 (08:50→21:00)
[2019-09-08] MEDS: Mupirocin 2% Ointment 22 GM Tube TOP SCH ×2 (08:51→20:58)
[2019-09-08] MEDS: Polyethylene Glycol 3350 17 GM Packet PO SCH (08:51)
[2019-09-08] MEDS: Bisacodyl 10 MG SUPP PR SCH ×2 (08:51→21:00)
[2019-09-08] MEDS: Niacin 500 MG TAB PO SCH (20:59)
[2019-09-08] MEDS: Simvastatin 20 MG TAB PO SCH (21:00)
[2019-09-08] MEDS: Febuxostat 40 MG TAB PO SCH (21:00)
[2019-09-09 03:37] VITALS: TEMP 97.8
[2019-09-09] MEDS: Tamsulosin HCl 0.4 MG CAP PO SCH (05:43)
[2019-09-09] MEDS: HYDROcodone/Acetaminophen 10/325 mg Tablet PO PRN ×3 (05:43→14:05)
[2019-09-09] MEDS: metFORMIN 500 MG TAB PO SCH (08:41)
[2019-09-09] MEDS: Lisinopril 10 MG TAB PO SCH (08:41)
[2019-09-09] MEDS: Aspirin Chewable 81 MG TAB PO SCH (08:41)
[2019-09-09] MEDS: Mupirocin 2% Ointment 22 GM Tube TOP SCH (08:41)
[2019-09-09] MEDS: Polyethylene Glycol 3350 17 GM Packet PO SCH (08:42)
[2019-09-09] MEDS: Gabapentin 300 MG CAP PO SCH ×2 (08:42→14:05)
[2019-09-09] MEDS: Bisacodyl 10 MG SUPP PR SCH (08:43)
[2019-09-09] MEDS ORDERED: Methocarbamol 500 MG TAB PO PRN (08:49)
[2019-09-09] MEDS ORDERED: Konsyl 12 gm Packet PO SCH (09:00)
--- NOTE | 2019-09-09 09:12 | DIS ---
DATE OF ADMISSION: 09/04/2019 DATE OF DISCHARGE: 09/09/2019 Mr. Fischer was admitted to [facility] on September 04, [address] Sander Byrd with subsequent discharge on September 09, 2019. ADMISSION DIAGNOSES: Status post lumbar decompression, gait, weakness, and abnormality. DISCHARGE DIAGNOSES: Status post lumbar decompression, gait, weakness, and abnormality. HOSPITAL COURSE: Mr. Fischer's hospital course was complicated by slow mobilization early with pain control issues that improved over the next 48 hours after surgery. Ultimately, he is ambulatory with a walker. Consultations ordered Physical Therapy, Occupational Therapy, and Inpatient Rehabilitation. He was discharged in stable condition to rehab with outpatient followup planned in 2 weeks. Job ID: [id number]
[2019-09-09] MEDS: Doxycycline 100 MG CAP PO SCH (10:18)
[2019-09-09 11:47] VITALS: BP 177/67
[2019-09-10] MEDS ORDERED: Metamucil PACK PO SCH (09:00)
== END 2019-09-09 14:45 | DRG 516 ==
LOC: SURG A 09-04 05:42 → EDSTATUS 09-04 11:30 → SURG B 09-04 15:57
PROVIDERS: ADMIT Neurological Surgery; ATTEND Neurological Surgery
PROC: 01N80ZZ Release Thoracic Nerve, Open Approach (ICD-10-PCS; principal; 2019-09-04)
PROC: 00U20KZ Supplement Dura Mater with Nonautologous Tissue Substitute, Open Approach (ICD-10-PCS; 2019-09-04)
PROC: 01NB0ZZ Release Lumbar Nerve, Open Approach (ICD-10-PCS; 2019-09-04)
PROC: 01NR0ZZ Release Sacral Nerve, Open Approach (ICD-10-PCS; 2019-09-04)
DX: M48.062 Spinal stenosis, lumbar region with neurogenic claudication (principal); E87.1 Hypo-osmolality and hyponatremia; M51.26 Other intervertebral disc displacement, lumbar region; M51.35 Other intervertebral disc degeneration, thoracolumbar region; M51.27 Other intervertebral disc displacement, lumbosacral region; M51.25 Other intervertebral disc displacement, thoracolumbar region; M48.05 Spinal stenosis, thoracolumbar region; M48.07 Spinal stenosis, lumbosacral region; I25.10 Atherosclerotic heart disease of native coronary artery without angina pectoris; I10 Essential (primary) hypertension; G47.33 Obstructive sleep apnea (adult) (pediatric); E11.9 Type 2 diabetes mellitus without complications; E78.5 Hyperlipidemia, unspecified; E66.9 Obesity, unspecified; J30.2 Other seasonal allergic rhinitis; L01.00 Impetigo, unspecified; K59.03 Drug induced constipation; T40.2X5A Adverse effect of other opioids, initial encounter; I95.9 Hypotension, unspecified; Z79.899 Other long term (current) drug therapy; Z98.1 Arthrodesis status; Z79.82 Long term (current) use of aspirin; Z79.84 Long term (current) use of oral hypoglycemic drugs; Z91.040 Latex allergy status; Z85.9 Personal history of malignant neoplasm, unspecified; Z79.01 Long term (current) use of anticoagulants; Z68.36 Body mass index [BMI] 36.0-36.9, adult; Z99.89 Dependence on other enabling machines and devices; G96.19 Other disorders of meninges, not elsewhere classified
CPT/HCPCS: 36415; 36416; 76000; 80048; 85025; 85027; 85610; 85730; J0690; J1100; J1170; J1885; J2001; J2270; J2405; J2704; J2765; J3010; J3370; J3490; S0020; S0028

== ENCOUNTER 2019-11-12 14:44 | Inpatient (IN) | payer OTHER ==
[2019-11-12] MEDS ORDERED: Magnevist 469MG/ML 20 ML VIAL ONE ×2 (15:20)
[2019-11-12] MEDS ORDERED: Morphine 4 MG/ML VIAL ONE ×3 (15:55→20:28)
[2019-11-12] MEDS ORDERED: Ondansetron PF 4 MG/2 ML Vial ONE ×2 (15:55→20:41)
[2019-11-12 16:22] LABS: #Basophils 0.1 thou/uL (0.0-0.2); #Eosinphils 0.2 thou/uL (0.0-0.7); #Lymphocytes 2.1 thou/uL (1.20-3.40); #Monocytes 0.4 thou/uL (0.11-0.59); #Neutrophils 2.9 thou/uL (1.40-6.50); %Eosinophils 3.4 % (0.0-10.0); %Monocytes 7.4 % (0.0-10.0); %Neutrophils 51.3 % (42.0-75.0); Hemoglobin 15.6 g/dL (14.0-18.0); Mean Corpuscular HGB CONC 34.7 g/dL (32.0-36.0); Mean Corpuscular Hemoglobin 32.5 pg (27.0-31.0); Mean Corpuscular Volume 93.8 fL (78.0-98.0); Mean Platelet Volume 7.2 fL (7.4-10.4); Platelet Count 154 thou/uL (130-400); RBC Distribution Width 13.2 % (11.5-14.5); Red Blood Cell (RBC) Count 4.79 mill/uL (4.70-6.10); White Blood Cell (WBC) Count 5.6 thou/uL (4.8-10.8)
[2019-11-12 16:50] LABS: ALT (SGPT) 31 U/L (8-55); AST (SGOT) 29 U/L (5-34); Albumin 4.1 g/dL (3.4-4.8); Alkaline Phosphatase 57 U/L (40-110); Anion Gap 14 mmol/L (10-20); BUN (Urea Nitrogen) 9 mg/dL (8.4-25.7); Bilirubin, Total 0.7 mg/dL (0.2-1.2); Calc. Creatinine Clearance 0 mL/min (70-130); Calcium 9.3 mg/dL (7.8-10.44); Carbon Dioxide 32 mmol/L (23-31); Chloride 93 mmol/L (98-107); Estimated GFR-MDRD Greater than 90; Globulin 3.1 g/dL (2.4-3.5); Glucose 100 mg/dL (80-115); Potassium 3.6 mmol/L (3.5-5.1); Protein, Total 7.2 g/dL (5.8-8.1); Sodium 135 mmol/L (136-145)
[2019-11-12 17:07] LABS: Bilirubin Negative (Negative); Blood, Urine Negative (Negative); Clarity Clear (Clear); Glucose, Urine (Dipstick) >=1000 mg/dL (Negative); Leukocyte Negative Leu/uL (Negative); Nitrite Negative (Negative); Protein, Urine (Dipstick) Negative (Neg-Trace); Urobilinogen Normal mg/dL (Less than 2)
--- NOTE | 2019-11-12 18:46 | MRI ---
EXAM: MRI lumbar spine without and with contrast HISTORY: Worsening low back pain. Lumbar surgery in August COMPARISON: 03/29/2019 TECHNIQUE: Multiple planar multisequence MR images were obtained of the lumbar spine without and with contrast. FINDINGS: The patient is status post posterior fusion of L2-L5 with bilateral pedicle screws. The vertebral bod ies demonstrate normal height and alignment without subluxation. Disc spacers are seen in the intervening disc spaces. Laminectomies have been performed from L1 to L5. Fluid is seen at the laminectomy site at L1 measurin g 1.0 cm in diameter and 3.2 cm in length. There is also fluid at the laminectomy site at L5 measuring 2.1 cm in width and 4.6 cm in length. Fluid is seen in the posterior midline soft tissues above the paraspinal muscles in the upper lumbar spine. This fluid collection measures 2.5 cm in width and 6.1 cm in length. There is also fluid collection in the midline soft tissues above the paraspinal muscles in the lower lumbar spine measuri ng 1.0 cm in width and 7.0 cm in length. The prevertebral soft tissues are unremarkable. The conus medullaris terminates normally at T12/L1. Expected enhancement in the surgical bed is seen on this exam. T12/L1: Small disc osteophyte complex. Mild bilateral posterior facet arthrosis. No central canal s tenosis. Moderate bilateral neural foraminal stenosis L1/2: Small disc osteophyte complex. Moderate bilateral posterior facet arthrosis. No central canal stenosis. Mild to moderate bilateral neural foraminal stenosis L2/3: No significant posterior bulge or protrusion. Incomplete visualization of the posterior facets secondary to hardware artifact. No central canal stenosis. No neural foraminal stenosis L3/4: No significant posterior bulge or protrusion. Incomplete visualization of the posterior facets secondary to hardware artifact. No central canal stenosis. No neural foraminal stenosis L4/5: No significant posterior bulge or protrusion. Incomplete visualization of the posterior facets secondary to hardware artifact. No central canal stenosis. No neural foraminal stenosis L5/S1: There is a new large extruded disc fragment extending upwards behind the L5 vertebral body. Th is is multilobulated with 2 separate fragments/lobulations measuring up to 1.4 cm in size. This is more prominent in the right aspect of the canal and appears to impress upon the right L5 and S1 nerve roots. Moderate bilateral posterior facet arthrosis. Moderate central canal stenosis. Severe bilateral neural foraminal stenosis IMPRESSION: 1. Expected postsurgical changes throughout the lumbar spine as above 2. There is a new protrusion/extrusion at L5/S1 causing impression on the nerve roots and neural fora anuj/central canal stenosis.
--- NOTE | 2019-11-12 18:59 | MRI ---
MRI THORACIC SPINE WITH AND WITHOUT CONTRAST: History: Low back pain, worsening for the last week. Inability to walk since Wednesday. Diarrhea. Diffic ulty urinating. Fever and chills. Comparison: None. Technique: Thoracic spine MRI was performed with and without intravenous gadolinium administration. M ultisequential, multiplanar imaging was performed. FINDINGS: Appropriate T1 marrow signal intensity of the thoracic vertebrae. Thoracic spine vertebral body heigh ts are maintained. There is no fracture. No significant STIR hyperintensity to suggest vertebral body edema or ligamentous injury. Post contrast images do not demonstrate any abnormal enhancement with r egards to the thoracic vertebrae. There is T1 marrow signal hypointensity with associated T2 and STIR hyperintensity involving the superior right endplate of T11 with associated enhancement. Type 1 Edgar c changes are favored. Appropriate signal intensity of the visualized paraspinal muscles. Appropriate signal intensity of th e visualized solid organs, mediastinum, and lung parenchyma. The thoracic cord has a normal size and signal intensity. No cord expansion. Post contrast images do not demonstrate any abnormality spinal cord enhancement. Incompletely evaluated laminectomy defects a t T12. See separate lumbar spine MRI report for further detail. There does appear to be fluid signal intensi ty at the T12 laminectomy defect site. Enhancing scar tissue is suspected. C7-T1: Broad based disc bulge without significant central canal stenosis. T1-2: No significant central canal stenosis or significant neuroforaminal narrowing. T2-3, T3-4: No significant central canal stenosis or significant neuroforaminal narrowing. Minimal le ft paracentral disc herniation at T3-4. T4-5: Minimal left to right paracentral disc herniation. No significant central canal stenosis. T5-6: Central disc herniation minimally deforms the thecal sac. Mild deformity of the thoracic cord. Mild central canal stenosis. T6-7: No significant central canal stenosis. T7-8: Central/left paracentral disc herniation deforms the thecal sac. Mild central canal stenosis. T here is mild to moderate deformity of the thoracic cord. Subtle T2 hyperintensity of the cord may rep resent cord malacia. T8-9: Minimal central canal stenosis due to a central/left paracentral disc bulge. T9-10: Central disc herniation with mild to moderate central canal stenosis. Mild deformity of the th oracic cord. T10-11: There is a broad based disc bulge with resultant moderate central canal stenosis. T11-12: No significant central canal stenosis. There is facet hypertrophy. IMPRESSION: 1. Significant central canal stenosis at multiple levels of the thoracic spine as described above. Th ere is deformity of the thoracic cord at the T7-8, T9-10 and T10-11 levels. 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 2. Laminectomy defect at T12-L1, incompletely evaluated. 3. No pathologic enhancement of the vertebral bodies. 4. No pathologic enhancement of the thoracic cord. POS: PPP
[2019-11-12] MEDS ORDERED: Ketorolac Tromethamine 30 MG/ML VIAL ONE (20:28)
[2019-11-12] MEDS ORDERED: Dexamethasone 10 MG/ML VIAL ONE (20:29)
--- NOTE | 2019-11-12 20:35 | PDOC.FPRHP ---
- History of Present Illness Chief Complaint: Back pain / difficulty walking History of Present Illness: Mr. Fischer is a 63yoM who had surgery on 09/[address] Byrd (decompressive laminectomy, medial facetectomy, foraminotomy t12-L1, L1-L2, and L5-S1). He was doing well after being discharged from inpatient rehab. He had routine follow up and had been recovering well. He was continuing PT. He had some residual pain and tightness in his upper glutes. On his right side, about a week ago, he felt that he could not walk as well. Starting on around 10/17 he noticed he could not walk as far as he had been able to. He continued to go to PT and their assessment was tight glutes. It continued to worsen over the last several weeks. His pain increased to the point that it is too painful to walk as of today. He was advised by Dr. Byrd's office to go the ED. His pain is worsened by movement and walking. It also hurts to lay flat, it helps to raise one leg. He does not recall a specific event that injured his lower back. He has a fall in early September, but landed on a knee and caught himself with a hand and had residual neck and shoulder pain that has since resolved. He denies saddle anesthesia and bowel or bladder incontinence. He does have some sharp, shooting nerve pains down the back of his right leg and numbness along the lateral right thigh and 4th and 5th digits on the right foot. ED Course: Dexamethasone 10mg, Toradol 15, Morphine 12mg, Zofran 4mg. - Allergies/Adverse Reactions Allergies Allergy/AdvReac Type Severity Reaction Status Date / Time Latex, Natural Rubber Allergy Verified 09/04/19 06:54 - Home Medications Medication Instructions Recorded Confirmed Type Amiloride/Hydrochlorothiazide 1 tab PO QAM 07/30/16 11/12/19 History [Amiloride HCl-Hctz 5-50 mg Tab] Lisinopril 20 mg PO QAM 07/30/16 11/12/19 History Meloxicam 15 mg PO QPM 07/30/16 11/12/19 History Metoprolol Succinate [Toprol XL] 50 mg PO BID 07/30/16 11/12/19 History Niacin 500 mg PO HS 07/30/16 11/12/19 History metFORMIN HCl [Metformin HCl ER] 750 mg PO BID 07/30/16 11/12/19 History Aspirin Chewable [Aspirin Chewable 81 mg PO DAILY 08/05/16 11/12/19 History Tablet] Empagliflozin [Jardiance] 10 mg PO QAM 09/01/19 11/12/19 History Febuxostat [Uloric] 80 mg PO QPM 09/01/19 11/12/19 History Furosemide 20 mg PO DAILY 09/01/19 11/12/19 History Icosapent Ethyl [Vascepa] 1 tab PO BID 09/01/19 11/12/19 History Pantoprazole Sodium 40 mg PO QPM 09/01/19 11/12/19 History Pravastatin Sodium 80 mg PO HS 11/12/19 11/12/19 History - History PMHx: Spinal stenosis Diabetes HTN CAREN CAD Squamous cell carcinoma, basal cell carcinoma PSHx: L1-L4 fusion History of A-fib/A-flutter, s/p ablation (Dr. Barakat) Plantar fascia release Hemorrhoidectomy Retinal reattachment, Lens replacement FHx: Mom: Diabetes, Alzheimer's, Dad: , heart related problems Sister: , colon cancer Brother: Diabetes, aortic aneurysm Brother: CAD Social: Smoked cigars back in the [place] Alcohol 2-3/day Denies illicit drug use. - Review of Systems General: reports: weight/appetite/sleep changes (Lost about 20 lbs last 6 months ). denies: fever/chills, night sweats Eyes: denies: eye pain, vision changes ENT: denies: nasal congestion, rhinorrhea Respiratory: denies: cough, congestion, shortness of breath Cardiovascular: denies: chest pain, palpitation, edema, paroxysmal nocturnal dyspnea, orthopnea Gastrointestinal: reports: nausea. denies: vomiting, diarrhea, constipation Genitourinary: reports: other (not fully emptying bladder). denies: incontinence, dysuria, polyuria Skin: denies: rashes, lesions Musculoskeletal: reports: pain, tenderness, stiffness Neurological: denies: numbness, syncope, seizure, weakness Psychological: denies: anxiety, depression - Vital signs BP: 146/102, MAP: 116, Pulse: 75, Resp: 16, Temp: 98 (Oral), Pain: 8, O2 sat: 100 on (Room Air), Time: 11/12/2019 18:54. Weight 117kg - Physical Exam Constitutional: NAD, awake, alert and oriented, well developed -Constitutional: Frequently changing position, due to pain HEENT: normocephalic and atraumatic, PERRLA, EOMI, conjunctiva clear, grossly normal vision, grossly normal hearing, MMM Neck: supple, FROM, trachea midline Chest: no-tender to palpation Heart: RRR, normal S1/S2, no murmurs/rubs/gallops Lungs: CTAB, no respiratory distress, good air movement, no rales/rhonchi, no wheezing Abdomen: soft, non-tender, bowel sounds present Musculoskeletal: normal structure, normal tone Neurological: no focal deficit, CN II-XII intact, DTRs 2+ -Neurological: Decreased sensation to light touch noted on right lateral thigh. Skin: no rash/lesions, good turgor Heme/Lymphatic: no unusual bruising or bleeding, no purpura, no petechia Psychiatric: normal mood and affect, good judgment and insight, intact recent and remote memory FMR H&P: Results - Labs Result Diagrams: 11/12/19 16:05 11/12/19 16:05 Lab results: WBC 5.6 thou/uL (4.8-10.8) 11/12/19 16:05 Hgb 15.6 g/dL (14.0-18.0) 11/12/19 16:05 Hct 44.9 % (42.0-52.0) 11/12/19 16:05 MCV 93.8 fL (78.0-98.0) 11/12/19 16:05 Plt Count 154 thou/uL (130-400) 11/12/19 16:05 Neutrophils % 51.3 % (42.0-75.0) 11/12/19 16:05 Sodium 135 mmol/L (136-145) L 11/12/19 16:05 Potassium 3.6 mmol/L (3.5-5.1) 11/12/19 16:05 Chloride 93 mmol/L (98-107) L 11/12/19 16:05 Carbon Dioxide 32 mmol/L (23-31) H 11/12/19 16:05 BUN 9 mg/dL (8.4-25.7) 11/12/19 16:05 Creatinine 0.70 mg/dL (0.7-1.3) 11/12/19 16:05 Glucose 100 mg/dL (80-115) 11/12/19 16:05 Lactic Acid 1.4 mmol/L (0.5-2.2) 11/12/19 16:05 Calcium 9.3 mg/dL (7.8-10.44) 11/12/19 16:05 Total Bilirubin 0.7 mg/dL (0.2-1.2) 11/12/19 16:05 AST 29 U/L (5-34) 11/12/19 16:05 ALT 31 U/L (8-55) 11/12/19 16:05 Alkaline Phosphatase 57 U/L (40-110) 11/12/19 16:05 C-Reactive Protein 1.54 mg/dL (= or < 0.5) H 11/12/19 16:05 Serum Total Protein 7.2 g/dL (5.8-8.1) 11/12/19 16:05 Albumin 4.1 g/dL (3.4-4.8) 11/12/19 16:05 Urine Ketones Negative mg/dL (Negative) 11/12/19 16:20 Urine Blood Negative (Negative) 11/12/19 16:20 Urine Nitrite Negative (Negative) 11/12/19 16:20 Ur Leukocyte Esterase Negative Bobby/uL (Negative) 11/12/19 16:20 - Radiology Interpretation Other Status: report reviewed by me (MRI Thoracic and Lumbar: 1. Expected postsurgical changes throughout the lumbar spine as above 2. There is a new protrusion/extrusion at L5/S1 causing impression on the nerve roots and neural foraminal/central canal stenosis.) FMR H&P: A/P - Problem List (1) Diabetes mellitus Current Visit: Yes Status: Acute Code(s): E11.9 - TYPE 2 DIABETES MELLITUS WITHOUT COMPLICATIONS (2) Intervertebral disc protrusion Current Visit: Yes Status: Acute Code(s): [id number] - (3) CAD (coronary artery disease) Current Visit: No Status: Acute Code(s): I25.10 - ATHSCL HEART DISEASE OF [place] CORONARY ARTERY W/O ANG PCTRS (4) HTN (hypertension) Current Visit: No Status: Acute Code(s): I10 - ESSENTIAL (PRIMARY) HYPERTENSION (5) CAREN (obstructive sleep apnea) Current Visit: No Status: Acute Code(s): G47.33 - OBSTRUCTIVE SLEEP APNEA ( ADULT) (PEDIATRIC) (6) Obesity Current Visit: No Status: Acute Code(s): E66.9 - OBESITY, UNSPECIFIED - Plan Back pain 2/2 protrusion of disk at L5/S1 Will manage pain overnight with [place] and Morphine PRN for breakthrough. Will try Gabapentin for nerve pain. Dr. Byrd notified that patient is here, consulted for the AM. Appreciate recommendations. Diabetes Continue home medications, hyperglycemia protocol in place. Consistent carb diet. HTN Continue home medications CAREN Patient does not currently wear a CPAP at home. O2 prn for desaturation overnight if needed. HLD Continue home medications. Dispo: Stable Code: Full PCP: Dr. Mera FMR H&P: Upper Level - Plan Date/Time: 11/12/192033 I, Rafael Rubalcava DO, have evaluated this patient and agree with findings/ plan as outlined by internal wholesaler resident. Pertinent changes/additions are listed here. I was present for the entire history physical exam and discussed in detail the plpan of care with Dr. Obregon. I agree with all findings and a/p listed above. 63 yo M presents for worsening pain and some mild weakness that has been progressive. He was found to have disc protrusion on MRI done in ED. Neurosurgery contacted from ED, recommend pain control. Will admit for observation and pain control overnight. To be seen by neurosurgery in the am. No s/s of cauda equina. NM exam intact, without deficit. Reports some numbness on lateral aspect of rt leg, otherwise normal sensation.
[2019-11-12] MEDS ORDERED: Senokot S 8.6-50 MG TAB PO PRN (21:31)
[2019-11-12] MEDS ORDERED: Dextrose 50% Abboject 50 ML SYRINGE SLOW IVP PRN (21:31)
[2019-11-12] MEDS ORDERED: Dextrose 5% in Water 1,000 ML IV PRN (21:31)
[2019-11-12] MEDS ORDERED: HYDROcodone/Acetaminophen 7.5/325 mg Tablet PO PRN (21:31)
[2019-11-12] MEDS ORDERED: Ondansetron ODT 4 MG TAB PO PRN (21:31)
[2019-11-12] MEDS ORDERED: HumaLOG 300 UNITS/3 ML VIAL SC PRN ×2 (21:31)
[2019-11-12 22:27] VITALS: BMI 33.3
[2019-11-12] MEDS: HYDROcodone/Acetaminophen 7.5/325 mg Tablet PO PRN (22:48)
[2019-11-12] MEDS: Gabapentin 100 MG CAP PO SCH (22:48)
[2019-11-13] MEDS: Morphine 2 MG/ML SYRINGE SLOW IVP PRN ×2 (00:33→18:28)
[2019-11-13] MEDS: HYDROcodone/Acetaminophen 7.5/325 mg Tablet PO PRN ×5 (04:21→21:53)
--- NOTE | 2019-11-13 06:31 | PDOC.FM ---
- Subjective Subjective: Mr. Fischer is laying in bed. Reports his pain is much improved compared to admission with the morphine and norco. He talked to his and said he has decided to proceed with surgery tomorrow. He has no concerns about his chronic medical problems. - Objective MAR Reviewed: Yes Vital Signs & Weight: Vital Signs (12 hours) Temp Pulse Resp BP Pulse Ox 11/13/19 04:17 97.8 F 73 16 149/93 H 95 11/12/19 22:28 97.5 F L 78 18 182/99 H 97 Weight Weight 117.934 kg I&O: 11/11/19 11/12/19 11/13/19 06:59 06:59 06:59 Intake Total 1000 Balance 1000 Result Diagrams: 11/12/19 16:05 11/12/19 16:05 Phys Exam - Physical Examination Constitutional: NAD Respiratory: clear to auscultation bilateral Cardiovascular: RRR, no significant murmur Gastrointestinal: soft, non-tender Musculoskeletal: no edema Psychiatric: normal affect Skin: normal turgor Dx/Plan (1) Intervertebral disc protrusion Code(s): BQQ4709 - Status: Acute (2) Diabetes mellitus Code(s): E11.9 - TYPE 2 DIABETES MELLITUS WITHOUT COMPLICATIONS Status: Acute (3) HTN (hypertension) Code(s): I10 - ESSENTIAL (PRIMARY) HYPERTENSION Status: Acute (4) Obesity Code(s): E66.9 - OBESITY, UNSPECIFIED Status: Acute - Plan Plan: 63 yo M presents for back and nerve pain. Back pain 2/2 protrusion of disk at L5/S1 [place] and Morphine PRN. Gabapentin ordered. Dr. Byrd consulted - patient desires surgical intervention Diabetes Continue home medications, hyperglycemia protocol in place. Consistent carb diet. HTN Continue home medications CAREN Patient does not currently wear a CPAP at home. O2 prn for desaturation overnight if needed. HLD Continue home medications. Dispo: Stable, pending possible surgery tomorrow Code: Full PCP: Dr. Mera Addendum - Attending - Attending Attestation Date/Time: 11/14/192039 I personally evaluated the patient and discussed the management with Dr. Guerrero on 11/13/19 I agree with the History, Examination, Assessment and Plan documented above with any addition or exceptions noted below- patient denies any complaints. pain well controlled. Has decided to have surgery. Afebrile VSS A/P: 1) DM- well controlled. Cont to monitor. 2) Disc herniation- continue current meds. plan for surgery in AM.
--- NOTE | 2019-11-13 07:57 | PRG ---
DATE OF SERVICE: 11/13/2019 I personally interviewed and examined the patient and agreed with documentation of Bill Ugalde PA-C dated 11/12/2019. Briefly, Pedro Fischer is no known to our Neurosurgery Service. He is a 63-year-old gentleman with multiple lumbar spine surgeries in the past. He ended up with a fusion construct from L2 to L5 with multiple operations done elsewhere. We saw him in the fall for some adjacent segment stenosis above and below this long construct. We decompressed those areas without extending his fusion. That operation was complicated by an erosion of the dura by one of his facet joints below his fusion construct, which was repaired with a patch graft. He made a nice recovery from that and he has done his physical therapy and was feeling well again. He took a fall a few weeks ago and since then he has had radiating right leg pain. This could be an L5 or S1 distribution. New MRI scans have been done since he presented to the hospital yesterday with increased pain. The MRI scan shows his thoracic spine is stable from prior. His lumbar spine shows a new disk herniation at L5-S1, mostly on the right side. There is some preexisting left-sided disk protrusion that is somewhat calcified. It is my impression that the lumbosacral disk on the right side is causing the new symptoms. A repeat operation has risk of disrupting his dura once again, which could lead to persistent leak, headaches, and/or meningitis. A repeat operation also has a risk of causing bleeding or other infection. There is risk of nerve damage paralysis, wheelchair dependence, cardiopulmonary complications of anesthesia, major blood vessel injury and . He understands the risks. He is going to make his decision as to whether he wants Pain Management doctors to perform injections and do some more therapy or whether he would like an operation tomorrow. If he chooses the surgery, we will make him n.p.o. after midnight, order antibiotics, consent him, and try to get him on the surgical schedule in this time of virus in our community. Job ID: [id number] [facility]ITAL[facility]el
[2019-11-13] MEDS: Aspirin Chewable 81 MG TAB PO SCH ×2 (08:01→08:31)
[2019-11-13] MEDS: metFORMIN 500 MG TAB PO SCH ×2 (08:01→18:29)
[2019-11-13] MEDS: Hydrochlorothiazide 25 MG TAB PO SCH (08:01)
[2019-11-13] MEDS: Lisinopril 20 MG TAB PO SCH (08:01)
[2019-11-13] MEDS: Enoxaparin Sodium 40 MG/0.4 ML SYRINGE SC SCH (08:32)
[2019-11-13] MEDS ORDERED: Furosemide 20 MG TAB PO SCH (09:00)
[2019-11-13] MEDS: Empagliflozin 10 MG TAB PO SCH (09:00)
[2019-11-13 11:43] LABS: Prothrombin Time 13.5 SEC (12.0-14.7)
[2019-11-13 11:44] LABS: PTT 29.7 SEC (22.9-36.1)
--- NOTE | 2019-11-13 14:04 | CON ---
DATE OF CONSULTATION: CHIEF COMPLAINT: Lower back pain. HISTORY OF PRESENT ILLNESS: Mr. Fischer is a 63-year-old gentleman, postoperative from 09/04/2019 with laminectomy of T12 through L2, laminectomy and diskectomy at L5-S1. He stated he recently finished his physical therapy and is currently working half a day. He states he was walking his dogs with his daughter, and he developed a right hip pain. He had to stop and his daughter had to go and get his truck to pick him up because he was in to much pain to walk any further. Currently, he is taking some leftover [place] 7.5 mg, that barely touches his lower back pain. He states that he fell out of bed on , hurting his right knee and his neck, but he does not contribute this to any of his symptoms. Currently, now he can only walk about 10 feet before he has to offload. On exam, he has pain in the buttocks, hamstring, not passing the knee with right S/I tenderness. He is currently walking with a limp. PAST MEDICAL HISTORY: Chronic pain, cancer, chest pain or pressure, eye problems, heart trouble, high blood pressure, irregular heartbeat, shortness of breath, basal cell carcinoma, squamous cell carcinoma. SURGICAL HISTORY: 1. Laminectomy at L1, L2, L3, L4, L5, fusion in 2008. 2. Throat growth removal in 2014. 3. Cardiac ablation. FAMILY HISTORY: Father , diagnosed with heart disease and cancer. Mother of diabetes. SOCIAL HISTORY: Former smoker. Occasionally drinks alcohol. No illicit drugs. ALLERGIES: TO LATEX. CURRENT MEDICATIONS: 1. Lisinopril. 2. Metoprolol. 3. Amiloride. 4. Fish oil. 5. Metformin. 6. Fiber. 7. Hydrocodone and acetaminophen. 8. Uloric. 9. Pravastatin. 10. Pantopraxole. 11. Meloxicam. 12. Aspirin. 13. Jardiance. 14. Niacin. 15. Flecainide. 16. Zofran. REVIEW OF SYSTEMS: CONSTITUTIONAL: Denies fever or chills. ENT: Denies change in vision or hearing. CARDIAC: Denies chest pain, shortness of breath, or diaphoresis. PULMONARY: Denies shortness of breath, cough, or hemoptysis. GI: Denies abdominal pain, nausea, vomiting, diarrhea, change in stool formation and consistency. : Denies trouble with urination, frequency of urination, or bloody urine. SKIN: Denies skin rash, bruising, bleeding, skin masses. MUSCULOSKELETAL: As per history of present illness. NEUROLOGIC: As per history of present illness. PSYCHOLOGIC: Denies anxiety, depression, behavior changes, or crying. PHYSICAL EXAMINATION: HEENT: Pupils are equal, extraocular movements are intact. NECK: Soft and supple. No masses are noted. Range of motion is intact and nonpainful. NEUROLOGIC: Awake, alert, and oriented x3. Memory, attention, fund of knowledge normal. Cranial nerves 2 through 12 grossly intact, 5/5 iliopsoas, quadriceps, hamstrings, anterior tib, EHL, and gastrocnemius. There is no area of dermatomal sensory loss. Reflexes are symmetric. The toes are downgoing. He is a little slow sitting to standing. Gait: Walks with a limp. IMAGING STUDIES: MRI obtained on 11/11 in the emergency room today of the LS spine, new protrusion at L5-S1, causing neuroforaminal central canal stenosis. PLAN: Mr. Fischer has worsening symptoms for urgent management. There is a need for surgical intervention. He states he would like to go forward with surgery tomorrow morning. We asked that the medicine team hold Lovenox and aspirin. We are going to make him n.p.o. with sips of water after midnight tonight. We will check platelets and coags and consent. INFORMED CONSENT: We discussed the indications, risks, benefits, alternatives, and expected outcomes from surgery. The risks discussed included, but are not limited to, bleeding, infection, CSF leak, nerve root damage, cauda equina injury, paralysis, incontinence wheelchair dependency, major blood vessel injury, cardiopulmonary complications of anesthesia, and . Long-term risks include the need for future surgery and spinal instability. The patient understands the risk and is willing to proceed. Job ID: [id number] [facility]
[2019-11-13] MEDS: Gabapentin 100 MG CAP PO SCH (20:18)
[2019-11-13] MEDS: Niacin 500 MG TAB PO SCH (20:18)
[2019-11-13] MEDS: Atorvastatin Calcium 20 MG TAB PO SCH (20:18)
[2019-11-13] MEDS ORDERED: FEBUXOSTAT 80 MG PO SCH (21:00)
[2019-11-14] MEDS: HYDROcodone/Acetaminophen 7.5/325 mg Tablet PO PRN ×2 (03:25→20:20)
[2019-11-14] MEDS: Morphine 2 MG/ML SYRINGE SLOW IVP PRN (05:14)
[2019-11-14] MEDS ORDERED: EPINEPHrine 1 MG/ML AMP ONE (06:10)
[2019-11-14] MEDS ORDERED: Bupivacaine PF 0.5% 30 ML VIAL ONE (06:10)
[2019-11-14] MEDS ORDERED: Thrombin 5000 UNITS/5 ML VIAL ONE (06:10)
[2019-11-14] MEDS ORDERED: Fentanyl 100 MCG/2 ML VIAL ONE ×4 (06:51→12:40)
--- NOTE | 2019-11-14 07:06 | PDOC.FM ---
- Subjective Subjective: Unable to see patient this morning as was in surgery. Now back on floor from recovery. He noted he was in pain and felt uncomfortable in the bed. He is waiting for his to visit. - Objective Vital Signs & Weight: Vital Signs (12 hours) Temp Pulse Resp BP Pulse Ox 11/14/19 03:29 98.0 F 60 16 118/81 98 11/14/19 00:16 98.1 F 61 16 121/73 96 11/13/19 20:11 94 L 11/13/19 19:53 98.5 F 64 18 136/80 94 L Weight Weight 117.934 kg I&O: 11/13/19 11/14/19 11/15/19 06:59 06:59 06:59 Intake Total 1000 200 Balance 1000 200 Result Diagrams: 11/12/19 16:05 11/12/19 16:05 Phys Exam - Physical Examination Respiratory: clear to auscultation bilateral (anteriorly) Cardiovascular: RRR, no significant murmur Gastrointestinal: soft, no distention Musculoskeletal: no edema Psychiatric: normal affect Skin: normal turgor Dx/Plan (1) Intervertebral disc protrusion Code(s): [id number] - Status: Acute (2) Diabetes mellitus Code(s): E11.9 - TYPE 2 DIABETES MELLITUS WITHOUT COMPLICATIONS Status: Acute (3) HTN (hypertension) Code(s): I10 - ESSENTIAL (PRIMARY) HYPERTENSION Status: Acute (4) Obesity Code(s): E66.9 - OBESITY, UNSPECIFIED Status: Acute - Plan Plan: 63 yo M presents for back and nerve pain. Back pain 2/2 protrusion of disk at L5/S1,now postop [place] and Morphine PRN. Gabapentin ordered. Dr. Byrd consulted - 11/13 repeat hemilaminectomy, medial facetectomy, foraminotomy L5-S1, repeat microdiskectomy Diabetes Continue home medications, hyperglycemia protocol in place. Consistent carb diet. HTN Continue home medications CAREN Patient does not currently wear a CPAP at home. O2 prn for desaturation overnight if needed. HLD Continue home medications. Dispo: Stable, post op management per Dr. Byrd Addendum - Attending - Attending Attestation Date/Time: 11/14/192100 I personally evaluated the patient and discussed the management with Dr. Guerrero I agree with the History, Examination, Assessment and Plan documented above with any addition or exceptions noted below- patient without complaints. Still sleepy from anesthesia. Afebrile VSS A/P: 1) DM - resume home meds once tolerating po well. 2) s/p lumbar surgery- plans as neurosurgery
[2019-11-14] MEDS: metFORMIN 500 MG TAB PO SCH ×2 (09:00→17:44)
[2019-11-14] MEDS: Empagliflozin 10 MG TAB PO SCH (09:49)
[2019-11-14] MEDS: Hydrochlorothiazide 25 MG TAB PO SCH (09:49)
[2019-11-14] MEDS: Lisinopril 20 MG TAB PO SCH (09:49)
[2019-11-14] MEDS ORDERED: PHENYLEPHRINE-NS 100 MCG/ML 10 ML SYRINGE ONE (10:11)
[2019-11-14] MEDS ORDERED: Lidocaine 1% PF 5 ML VIAL ONE ×2 (10:11)
[2019-11-14] MEDS ORDERED: Ondansetron PF 4 MG/2 ML Vial ONE (10:11)
[2019-11-14] MEDS ORDERED: PROPOFOL 200 MG/20 ML VIAL ONE (10:11)
[2019-11-14] MEDS ORDERED: Ketorolac Tromethamine 30 MG/ML VIAL ONE (10:11)
[2019-11-14] MEDS ORDERED: Rocuronium Bromide 10 MG/ML (10ML VIAL) ONE (10:11)
[2019-11-14] MEDS ORDERED: Succinylcholine Chloride 20 MG/ML 10 ml SYRINGE FS ONE (10:11)
[2019-11-14] MEDS ORDERED: Glycopyrrolate 0.2 MG/ML 5 ML SYRINGE ONE (10:11)
[2019-11-14] MEDS ORDERED: Promethazine HCl 25 MG/ML VIAL ONE (11:53)
--- NOTE | 2019-11-14 12:08 | OP ---
DATE OF PROCEDURE: 11/14/2019 INTERNAL COMMUNICATIONS MANAGER: Bill Ugalde PA-C PREOPERATIVE INDICATION: Treat pain and prevent neurological deterioration. PREOPERATIVE DIAGNOSIS: Recurrent lumbar intervertebral disk herniation at L5-S1 with right greater than left L5 and S1 radiculopathies. POSTOPERATIVE DIAGNOSIS: Recurrent lumbar intervertebral disk herniation at L5-S1 with right greater than left L5 and S1 radiculopathies. PROCEDURES PERFORMED: Reopening lumbar incision, dissection of scar tissue, repeat hemilaminectomy, medial facetectomy, foraminotomy L5-S1, repeat microdiskectomy L5-S1, bilateral operating microscope. PREOPERATIVE MEDICATIONS: Ancef 2 g IV. DRAIN NUMBER: Zero. DRAIN TYPE: None. DESCRIPTION OF PROCEDURE: The patient was brought to the operating room. General endotracheal anesthesia was induced. The patient was positioned prone on the operating table with his chest and hips supported by gel-filled chest rolls. A lateral fluoro radiograph was used to guide this as to which portion of its previous incisions to open to gain access from L5 through S1. The skin was sterilely prepped and draped. We opened a midline incision with a 10 blade knife. We dissected through scar tissue to the thoracodorsal fascia. We incised the fascia in the midline and reflected scar tissue in the paraspinal muscles off the spinous process and lamina of the sacrum. We identified the instrumentation at L5 and spread our dissection until we could visualize L5 pedicles in the rods on either side. We then brought the operating microscope into the field. Under microscopic magnification using microsurgical techniques, we carefully freed scar tissue from the lateral borders of the spinal canal. This was a tedious process and required micro curettes and 1 mm [place] rongeurs. Finally, we dissected scar tissue and dura free from the pedicles at L5 and at S1. We could easily identify the lateral margin of the dura on both sides. We encountered the patch that we used to close the dura last during his last surgery and there was no CSF egress. We turned our attention to finding the neural elements. We identified the L5 nerve roots at the pedicles and followed the L5 nerve roots out the respective foramina. In similar fashion, we found the S1 nerve roots. On the ventral aspect of the dura in the ventral epidural space, there was a large amount of intervertebral disk that had protruded and that had herniated. Most of the herniation was on the right side. A large protrusion in the midline was reached from both sides. We carefully incised the lateral margins of the discs on both sides. We removed multiple large fragments of the intervertebral disk material from the ventral epidural space. There was a copious amount of disk and when we were done, both L5 nerve roots and both S1 nerve roots were no longer under any stretch. There was not much disk flushed in the interspace. We reached in for loose fragments of disk with pituitary rongeurs and removed those. All the disk that was firmly adherent to the endplates was left in place. During our dissection, we noticed a very large amount of synovium from the facet joint on the right at L5-S1, which was attached to the dura over the S1 nerve root. This scar tissue was so densely adherent that we simply freed it from the facet joint, reduced its mass from its lateral portion and left it attached to the dura for fear that removing it would cause another CSF drainage. We administered Valsalva and there was no egress of CSF. We irrigated copiously with bacitracin irrigation. We placed a small pledget of fat into the interspace to promote scar formation and closure of the disk space. We treated the wound with vancomycin powder and we closed in anatomical layers. We applied a sterile dressing. This was a clean case, no contamination. Job ID: [id number]
[2019-11-14] MEDS ORDERED: traMADol HCl 50 MG TAB PO PRN ×2 (13:22)
[2019-11-14] MEDS ORDERED: Promethazine HCl 25 MG/ML VIAL IM PRN (13:22)
[2019-11-14] MEDS ORDERED: Ondansetron PF 4 MG/2 ML Vial IM PRN (13:22)
[2019-11-14] MEDS ORDERED: Morphine 4 MG/ML VIAL SLOW IVP PRN (13:22)
[2019-11-14] MEDS ORDERED: Promethazine 25 MG TAB PO PRN (13:22)
[2019-11-14] MEDS ORDERED: Promethazine HCl 12.5 MG SUPP PR PRN (13:22)
[2019-11-14] MEDS ORDERED: diphenhydrAMINE 25 MG CAP PO PRN (13:22)
[2019-11-14] MEDS ORDERED: Acetaminophen/Codeine 30-300mg Tablet PO PRN ×2 (13:22)
[2019-11-14] MEDS ORDERED: Milk Of Magnesia 30 ML UDCUP PO PRN (13:22)
[2019-11-14] MEDS ORDERED: diphenhydrAMINE 50 MG/ML VIAL IVP PRN (13:22)
[2019-11-14] MEDS ORDERED: Scopolamine 1.5 mg/72 hour Patch TD PRN (13:22)
[2019-11-14] MEDS ORDERED: Morphine 2 MG/ML SYRINGE SLOW IVP PRN (13:22)
[2019-11-14] MEDS: Sodium Chloride 0.9% 1,000 ML IV SCH (13:47)
[2019-11-14] MEDS: tiZANidine HCl 4 MG TAB PO PRN (13:59)
[2019-11-14] MEDS ORDERED: CEFAZOLIN 2 GM in Premix Bag 1 BAG IVPB SCH (15:00)
[2019-11-14] MEDS: Gabapentin 100 MG CAP PO SCH (20:21)
[2019-11-14] MEDS: Atorvastatin Calcium 20 MG TAB PO SCH (20:21)
[2019-11-14] MEDS: Niacin 500 MG TAB PO SCH (20:22)
[2019-11-15] MEDS: Sodium Chloride 0.9% 1,000 ML IV SCH (01:57)
[2019-11-15] MEDS: HYDROcodone/Acetaminophen 7.5/325 mg Tablet PO PRN (03:22)
[2019-11-15] MEDS: tiZANidine HCl 4 MG TAB PO PRN ×2 (04:19→10:08)
--- NOTE | 2019-11-15 06:48 | PDOC.FM ---
- Subjective Subjective: Mr. Fischer reported having back pain that is relieved some with pain meds. Ambulating and urinating. Good PO intake. Not passed flatus. - Objective Vital Signs & Weight: Vital Signs (12 hours) Temp Pulse Resp BP BP Pulse Ox 11/15/19 04:00 98.3 F 70 18 149/80 H 96 11/14/19 23:27 98.1 F 83 16 107/68 93 L 11/14/19 19:47 97.9 F 64 18 103/63 96 Weight Weight 117.934 kg I&O: 11/13/19 11/14/19 11/15/19 06:59 06:59 06:59 Intake Total 1000 200 Balance 1000 200 Result Diagrams: 11/12/19 16:05 11/12/19 16:05 Phys Exam - Physical Examination Constitutional: NAD Respiratory: clear to auscultation bilateral Cardiovascular: RRR, no significant murmur Gastrointestinal: soft, non-tender Musculoskeletal: no edema Neurological: non-focal Dx/Plan (1) Intervertebral disc protrusion Code(s): [id number] - Status: Acute (2) Diabetes mellitus Code(s): E11.9 - TYPE 2 DIABETES MELLITUS WITHOUT COMPLICATIONS Status: Acute (3) HTN (hypertension) Code(s): I10 - ESSENTIAL (PRIMARY) HYPERTENSION Status: Acute (4) Obesity Code(s): E66.9 - OBESITY, UNSPECIFIED Status: Acute - Plan Plan: 63 yo M presents for back and nerve pain. Back pain 2/2 protrusion of disk at L5/S1,now postop [place] and Morphine PRN Dr. Byrd consulted - 11/13 repeat hemilaminectomy, medial facetectomy, foraminotomy L5-S1, repeat microdiskectomy Diabetes Continue home medications, hyperglycemia protocol in place. Consistent carb diet. HTN Continue home medications CAREN Patient does not currently wear a CPAP at home. O2 prn for desaturation overnight if needed. HLD Continue home medications. Dispo: Discharged by neurosurgery team Addendum - Attending - Attending Attestation Date/Time: 11/15/19 5822 I personally evaluated the patient and discussed the management with Dr. Guerrero I agree with the History, Examination, Assessment and Plan documented above with any addition or exceptions noted below - Patient without complaints except some back pain. Just finished ambulating. Afebrile VSS. A/P: 1) Herniated disc s /p surgery- ding well; ok to discharge per neurosurgery. 2) DM- BG well controlled.
[2019-11-15] MEDS: Hydrochlorothiazide 25 MG TAB PO SCH (08:17)
[2019-11-15] MEDS: metFORMIN 500 MG TAB PO SCH (08:17)
[2019-11-15] MEDS: Empagliflozin 10 MG TAB PO SCH (08:18)
[2019-11-15] MEDS: Aspirin Chewable 81 MG TAB PO SCH (08:18)
[2019-11-15] MEDS: Lisinopril 20 MG TAB PO SCH (08:20)
[2019-11-15] MEDS: Enoxaparin Sodium 40 MG/0.4 ML SYRINGE SC SCH (08:20)
[2019-11-15 11:24] VITALS: BP 126/82; TEMP 98.1
--- NOTE | 2019-11-15 22:43 | EKG ---
Test Reason : PREOP Blood Pressure : / mmHG Vent. Rate : 064 BPM Atrial Rate : 064 BPM P-R Int : 162 ms QRS Dur : 110 ms QT Int : 418 ms P-R-T Axes : 077 051 004 degrees QTc Int : 431 ms Normal sinus rhythm Normal ECG No previous ECGs available Confirmed by Gem TAVERA ([id number]) on 11/15/2019 10:43:21 PM Referred By: Confirmed By:Gem TAVERA
--- NOTE | 2019-11-16 15:06 | DIS ---
DATE OF ADMISSION: 11/12/2019 DATE OF DISCHARGE: 11/15/2019 RESIDENT: Vandana Guerrero DO ADMITTING ATTENDING: Sacha Sheikh MD DISCHARGE ATTENDING: Aisha Horn MD [employer]IVER: Neurosurgery, Dr. Byrd. PROCEDURES: 11/14/2019, surgery performed was reopening of lumbar incision; dissection of scar tissue; repeat hemilaminectomy; medial facetectomy; foraminotomy, L5-S1; repeat microdiskectomy, L5-S1; bilateral operating microscope. PRIMARY DIAGNOSIS: Recurrent lumbar intervertebral disk herniation at L5-S1 status post corrective surgery. SECONDARY DIAGNOSES: 1. Diabetes. 2. Hypertension. 3. Obstructive sleep apnea. 4. Hyperlipidemia. DISCHARGE MEDICATIONS AND INSTRUCTIONS: Prepared by Neurosurgery team. No change to home medications. DISCONTINUED MEDICATIONS: None. HISTORY OF PRESENT ILLNESS: This 63-year-old male presented for significant back pain with difficulty walking. He was recommended by Dr. Byrd to present to the emergency department for further evaluation. He has been a prior surgical patient of Dr. Byrd. MRI showed a new protrusion/extrusion at L5-S1 causing impression on the nerve roots and neural foraminal/central canal stenosis. The patient's pain was managed and the patient went for surgery as noted above. He experienced an unremarkable postoperative course and was discharged home in stable condition. DISPOSITION: Stable. DISCHARGE INSTRUCTIONS: Location: Home. Diet: Diabetic. Activity: As tolerated. Followup: Follow up with primary care physician, Dr. Mera in 7 days. Job ID: [id number]
== END 2019-11-15 12:00 | disposition home or self-care (01) | DRG 520 ==
LOC: ERS 14:44 → SURG B 20:46 → OBSVTOIN 20:46
PROVIDERS: ADMIT Family Medicine; ATTEND Family Medicine
PROC: 01NB0ZZ Release Lumbar Nerve, Open Approach (ICD-10-PCS; principal; 2019-11-14)
PROC: 0SB40ZZ Excision of Lumbosacral Disc, Open Approach (ICD-10-PCS; 2019-11-14)
PROC: 01NR0ZZ Release Sacral Nerve, Open Approach (ICD-10-PCS; 2019-11-14)
DX: M51.17 Intervertebral disc disorders with radiculopathy, lumbosacral region (principal); E11.9 Type 2 diabetes mellitus without complications; I10 Essential (primary) hypertension; G47.33 Obstructive sleep apnea (adult) (pediatric); I25.10 Atherosclerotic heart disease of native coronary artery without angina pectoris; I48.91 Unspecified atrial fibrillation; E66.9 Obesity, unspecified; E78.5 Hyperlipidemia, unspecified; G93.89 Other specified disorders of brain; M48.07 Spinal stenosis, lumbosacral region; Z85.828 Personal history of other malignant neoplasm of skin; Z98.1 Arthrodesis status; Z87.891 Personal history of nicotine dependence; Z91.040 Latex allergy status; Z79.899 Other long term (current) drug therapy; Z79.84 Long term (current) use of oral hypoglycemic drugs; Z79.82 Long term (current) use of aspirin
CPT/HCPCS: 36415; 36416; 72157; 72158; 76000; 80053; 81003; 83605; 85025; 85610; 85730; 86140; 87040; 87070; 87205; 93005; 93010; 96374; 96375; 96376; A9579; J0171; J0690; J1100; J1650; J1885; J2001; J2270; J2405; J2550; J2704; J3010; J3370; J3490; S0020